=== PATIENT | male | born 1955 | race Caucasian/White ===

== ENCOUNTER 2019-07-27 13:36 | Observation (INO) ==
--- NOTE | 2019-07-27 14:17 | Diag Imaging Result Doc PS360 ---
CT HEAD W/O CONTRAST - 07/27/2019 INDICATION: weakness COMPARISON: 07/05/2019 FINDINGS: The ventricles and sulci are normal in size and contour. No intracranial mass or hemorrhage. The skull is intact. The sinuses mastoids and middle ears are clear. IMPRESSION: Negative exam. This exam was performed using automated exposure control, adjustment of mA or kV according to patient size, and/or use of iterative reconstruction technique Electronically signed by Sarthak Kim 07/27/2019 2:15 PM
[2019-07-27 14:54] LABS: BASO# 0.02 X1000 (0.0-0.2); BASO% 0.3 % (0.0-0.8); EOS# 0.11 X1000 (0.0-0.7); EOS% 1.4 % (0.0-10.0); HEMATOCRIT 46.3 % (42.0-52.0); HEMOGLOBIN 15.4 g/dL (14.0-18.0); IMM GRAN# 0.03 X1000 (0.0-0.04); IMM GRAN% 0.4 % (0.0-0.5); LYMPH# 2.14 X1000 (1.2-3.4); LYMPH% 27.8 % (20.5-51.1); MCH 31.4 PG (27-31); MCHC 33.3 g/dL (33-37); MCV 94.3 FL (81-99); MONO# 0.57 X1000 (0.11-0.59); MONO% 7.4 % (1.7-9.3); MPV 8.8 FL (7.4-10.4); NEUT# 4.84 X1000 (1.4-6.5); NEUT% 62.7 % (42.2-75.2); PLT 174 X1000 (130-400); RBC 4.91 XMIL (4.7-6.1); RDW 12.5 % (11.5-14.5); WBC 7.71 X1000 (4.8-10.8)
--- NOTE | 2019-07-27 15:06 | EKG Report ---
Test Performed on : 07/27/2019 2:48:14 PM Test Reason : weakness Blood Pressure : / mmHG Vent. Rate : 077 BPM Atrial Rate : 077 BPM P-R Int : 150 ms QRS Dur : 088 ms QT Int : 398 ms P-R-T Axes : 031 -10 037 degrees QTc Int : 450 ms Normal sinus rhythm. Normal ECG When compared with ECG of 05-JUL-2019 00:51, (Unconfirmed) Nonspecific T wave abnormality now evident in Lateral leads Unconfirmed Result
[2019-07-27 15:25] LABS: AGAP 17; ALB/GLOB RATIO 2.2; ALBUMIN 4.2 g/dL (3.5-5.0); ALKALINE PHOSPHATASE 58 U/L (32-122); BUN 11 mg/dL (8-22); CALCIUM 9.1 mg/dL (8.8-10.2); CHLORIDE 98 mmol/L (98-107); COSMO 280; CREATININE 0.8 mg/dL (0.7-1.2); ESTIMATED GFR > 60; GLUCOSE 180 mg/dL (70-104); GOT 15 U/L (10-34); GPT 11 U/L (10-44); POTASSIUM 4.5 mmol/L (3.5-5.1); SODIUM 138 mmol/L (136-145); TCO2 23 mmol/L (25-35); TOTAL BILIRUBIN 0.38 mg/dL (0.20-1.00); TOTAL PROTEIN 6.1 g/dL (6.3-8.3)
[2019-07-27 17:54] LABS: URINE SOURCE CLEAN CATCH
[2019-07-27 18:02] LABS: UR EPITHELIAL CELLS <10 /HPF (<10); URINE BACTERIA 1+ /HPF; URINE RBC <10 /HPF (<10); URINE WBC <10 /HPF (<10)
[2019-07-27 18:04] LABS: BILIRUBIN URINE NEGATIVE (NEGATIVE); BLOOD URINE NEGATIVE (NEGATIVE); COLOR YELLOW; GLUCOSE URINE >1000 mg/dL (NEGATIVE); KETONE URINE 60 mg/dL (NEGATIVE); LEUKOCYTES URINE NEGATIVE (NEGATIVE); NITRITE URINE NEGATIVE (NEGATIVE); PH URINE 5.5; PROTEIN URINE NEGATIVE (NEGATIVE); SP GRAVITY URINE 1.041; TURBIDITY URINE CLEAR (CLEAR); UROBILINOGEN URINE NORMAL (NORMAL)
--- NOTE | 2019-07-27 18:34 | PROVIDER DOCUMENTATION ---
This chart was entered by La Waterman Scribe, acting as scribe for Richard Vogt MD. HPI-Musculoskeletal Pain/Inj - GENERAL Stated Complaint: WEAKNESS Time Seen by Provider: 07/27/19 13:43 Source: patient - HX OF PRESENT ILLNESS-MUSKULOSKELTAL Nature of Presenting Problem: 64 yom presents to the ed with c/o BLE weakness and unable to ambulate since onset of weakness. pt saw his pcp and was told 2 of his medications were causing sx and was taken off one of them. pt is unsure what medications it was. pt on exam is nonotoxic in appearance on exam Quality of Pain: reports: none (just c/o weakness) Severity in ED: moderate Onset/Duration: other (2 weeks) Timing: still present, constant Modifying Factors: improves with: nothing Any recent injury?: No Locality of Occurance: Home Similar Symptoms Previously?: Yes Recently seen or treated by another doctor?: Yes (pcp) Review of Systems - Adult - REVIEW OF SYSTEMS - ADULT Constitutional: denies: chills, fever Eyes: reports: no symptoms reported Ears, Nose, Mouth & Throat: reports: no symptoms reported Cardiovascular: reports: no symptoms reported. denies: chest pain, edema, palpitations Respiratory: denies: cough, shortness of breath, wheezing Gastrointestinal: denies: diarrhea, nausea, vomiting Genitourinary: reports: no symptoms reported Musculoskeletal: reports: see HPI, muscle weakness (BLE). denies: back pain, neck pain Integumentary: reports: no symptoms reported Neurological: denies: dizziness/vertigo, headache/migraines Psychiatric: reports: no symptoms reported Endocrine: reports: no symptoms reported Hematologic/Lymphatic: reports: no symptoms reported Allergic/Immunologic: reports: no symptoms reported All Other Systems: Reviewed and Negative Past History - Adult - PAST MEDICAL HISTORY-ADULT Review of Records: reports: Old Records Reviewed, Nursing Assessment Review, Medications Reviewed, Social history reviewed & non-contributory. Major Childhood Illnesses: reports: denies history Cardiovascular: reports: hyperlipidemia Respiratory: reports: denies history Gastrointestinal: reports: GERD Genitourinary: reports: denies history Musculoskeletal: reports: arthritis, chronic pain, intervertebral disc disease Neurological: reports: denies history, dementia Psychiatric: reports: bipolar, depression, psychiatric problems Endocrine/Immune: reports: Diabetes, thyroid disorder Diabetes Type: Type 2 Other Conditions: reports: denies history, MRSA - PRIOR SURGERIES/PROCEDURES Surgical/Procedure History: reports: cholecystectomy, other (cataract removal,) - IMMUNIZATION STATUS Childhood Immunizations: See Nurse Assessment Flu Vaccine: See Nurse Assessment - FAMILY HISTORY Family History: reviewed, not pertinent - SOCIAL HISTORY Smoking: quit greater than 1 year Substance Use: denies Living Situation: family Physical Exam-Injury Related - Physical Exam-Injury Related Initial Vital Signs Reviewed: Yes General Appearance: appears well, alert, mild distress Eyes: PERRL/EOMI, pink conjunctivae Head, Ears, Nose, Mouth & Throat: moist mucous membranes, normal ENT inspection Neck: non-tender, full range of motion, supple, normal inspection Respiratory: chest non-tender, lungs clear, normal breath sounds Cardiovascular: normal peripheral pulses, regular rate, rhythm Chest/Breast: deferred Abdominal Exam: normal bowel sounds, non tender, soft, no organomegaly, no pulsatile mass Male Genitalia: deferred Rectal Exam: deferred Hemoccult Exam: deferred Lymphatic: no adenopathy Back Exam: normal inspection, no CVA tenderness, no vertebral tenderness Extremity: normal inspection, no pedal edema, no calf tenderness, normal c apillary refill, pelvis stable, other (weakness to BLE for 2 weeks. pt on exam can move BLE about 1 inch from bed without assistance. pt sts has not been able to ambulate due to weakness and has seen pcp). negative: normal gait Progress - PLAN OF CARE/RESULTS Progress/Plan/Lab Results: Vital Signs - 8 hr 07/27/19 13:45 Temperature 98.6 F Pulse Rate 88 Respiratory Rate 16 Blood Pressure 104/62 O2 Sat by Pulse Oximetry 98 Laboratory Results - last 24 hr 07/27/19 07/27/19 07/27/19 14:40 14:40 14:40 WBC 7.71 RBC 4.91 Hgb 15.4 Hct 46.3 MCV 94.3 MCH 31.4 H MCHC 33.3 RDW Std Deviation 12.5 Plt Count 174 MPV 8.8 Immature Gran % (Auto) 0.4 Neut % (Auto) 62.7 Lymph % (Auto) 27.8 [place] % (Auto) 7.4 Eos % (Auto) 1.4 Baso % (Auto) 0.3 Immature Gran # (Auto) 0.03 Neut # (Auto) 4.84 Lymph # (Auto) 2.14 [place] # (Auto) 0.57 Eos # (Auto) 0.11 Baso # (Auto) 0.02 Sodium 138 Potassium 4.5 Chloride 98 Carbon Dioxide 23 L Anion Gap 17 BUN 11 Creatinine 0.8 Estimated GFR/1.73 m2 > 60 BUN/Creatinine Ratio 14 Glucose 180 H POC Glucose Calculated Osmolality 280 Calcium 9.1 Phosphorus Magnesium Total Bilirubin 0.38 AST 15 ALT 11 Alkaline Phosphatase 58 Troponin T < 0.010 Total Protein 6.1 L Albumin 4.2 Globulin 1.9 Albumin/Globulin Ratio 2.2 Urine Source Urine Color Urine Turbidity Urine pH Ur Specific [place] Urine Protein Ur Glucose (Stick) Ur Ketones (Stick) Urine Blood Urine Nitrite Urine Bilirubin Urobilinogen Dipstick Urine Leukocytes Urine WBC (Auto) Urine RBC (Auto) U Epithel Cells (Auto) Urine Bacteria (Auto) 07/27/19 07/27/19 07/27/19 14:40 14:40 14:54 WBC RBC Hgb Hct MCV MCH MCHC RDW Std Deviation Plt Count MPV Immature Gran % (Auto) Neut % (Auto) Lymph % (Auto) [place] % (Auto) Eos % (Auto) Baso % (Auto) Immature Gran # (Auto) Neut # (Auto) Lymph # (Auto) [place] # (Auto) Eos # (Auto) Baso # (Auto) Sodium Potassium Chloride Carbon Dioxide Anion Gap BUN Creatinine Estimated GFR/1.73 m2 BUN/Creatinine Ratio Glucose POC Glucose 170 H Calculated Osmolality Calcium Phosphorus 3.3 Magnesium 1.9 Total Bilirubin AST ALT Alkaline Phosphatase Troponin T Total Protein Albumin Globulin Albumin/Globulin Ratio Urine Source Urine Color Urine Turbidity Urine pH Ur Specific [place] Urine Protein Ur Glucose (Stick) Ur Ketones (Stick) Urine Blood Urine Nitrite Urine Bilirubin Urobilinogen Dipstick Urine Leukocytes Urine WBC (Auto) Urine RBC (Auto) U Epithel Cells (Auto) Urine Bacteria (Auto) 07/27/19 17:32 WBC RBC Hgb Hct MCV MCH MCHC RDW Std Deviation Plt Count MPV Immature Gran % (Auto) Neut % (Auto) Lymph % (Auto) [place] % (Auto) Eos % (Auto) Baso % (Auto) Immature Gran # (Auto) Neut # (Auto) Lymph # (Auto) [place] # (Auto) Eos # (Auto) Baso # (Auto) Sodium Potassium Chloride Carbon Dioxide Anion Gap BUN Creatinine Estimated GFR/1.73 m2 BUN/Creatinine Ratio Glucose POC Glucose Calculated Osmolality Calcium Phosphorus Magnesium Total Bilirubin AST ALT Alkaline Phosphatase Troponin T Total Protein Albumin Globulin Albumin/Globulin Ratio Urine Source CLEAN CATCH Urine Color YELLOW Urine Turbidity CLEAR Urine pH 5.5 Ur Specific [place] 1.041 Urine Protein NEGATIVE Ur Glucose (Stick) >1000 A Ur Ketones (Stick) 60 A Urine Blood NEGATIVE Urine Nitrite NEGATIVE Urine Bilirubin NEGATIVE Urobilinogen Dipstick NORMAL Urine Leukocytes NEGATIVE Urine WBC (Auto) <10 Urine RBC (Auto) <10 U Epithel Cells (Auto) <10 Urine Bacteria (Auto) 1+ Orders Category Date Time Status Nursing- Obtain EKG ONCE Care 07/27/19 13:[address] HEAD W/O CONTRAST [CT] Stat Exams 07/27/19 13:54 Completed CBC WITH ELECTRONIC DIFF [HEME] Stat Lab 07/27/19 14:40 Completed COMPREHENSIVE METABOLIC PANEL [CHEM] Stat Lab 07/27/19 14:40 Completed MAGNESIUM [CHEM] Stat Lab 07/27/19 14:40 Completed TROPONIN T Stat Lab 07/27/19 14:40 Completed URINALYSIS W/POSS RFLX CULT [URINALYSIS] Stat Lab 07/27/19 17:32 Completed phos [PHOSPHORUS] [CHEM] Stat Lab 07/27/19 14:40 Completed EKG [EKG] Stat Ther 07/27/19 13:49 Draft Result Diagrams: 07/27/19 14:40 07/27/19 14:40 - REASSESSMENT Reassessment #1 Time Reassessed: 14:49 Status: unchanged - EKG 1 Time of EKG reading by physician:: 14:48 EKG Read and Signed by:: Richard Vogt EKG Interpretation (*Must complete 3 of following elements*): Normal Rate: 77 Rhythm: nsr [place]: normal QRS: normal MD Interval: normal ST Wave: normal - CT/MRI 1 CT Study: Head Impression: See EMR Report (CT HEAD W/O CONTRAST - 07/27/2019 INDICATION: weak ness COMPARISON: 07/05/2019 FINDINGS: The ventricles and sulci are normal in size and contour. No intracranial mass or hemorrhage. The skull is intact. The sinuses mastoids and middle ears are clear. IMPRESSION: Negative exam. This exam was performed using automated exposure control, adjustment of mA or kV according to patient size, and/or use of iterative reconstruction technique Electronically signed by Sarthak Kim 07/27/2019 2:15 PM 07/27/19 1415 Interpreting Physician: Sarthak Kim MD Dictated Date/Time: 07/27/19 1414 cc: Richard Vogt MD; Jamari Russell MD) - CONSULTS/PCP/HOSPITALIST Notification #1 *Consult/PCP/Hospitalist*: Roxanne ([employer]) for Dr Potter Time Discussed: 18:30 Consult Disposition: Will see in ED, Admit Departure - Departure Date of Disposition Decision: 07/27/19 Time of Disposition Decision: 18:29 DIAGNOSIS: Weakness, Neuropathy Disposition: ADMITTED INPATIENT 09 Certified Medical Emergency: Emergent Condition: Fair Referrals and Follow-Ups: Jamari Russell MD [Primary Care Provider] - - Critical Care Note This patient required my direct & personal management of CC.: No Attestation - Physician/ KORI Attestation Patient care was provided by Advanced Practice Provider:: No The physician spent face to face time with patient:: Yes Advanced Practice Provider documentation review:: Supervising physician onsite and consulted in the evaluation and care of this patient. The physician did have a face to face encounter with the patient. This chart was documented by the indicated scribe, (La Waterman Scribe) and accurately reflects the services I performed and decisions made by me, Richard Vogt MD, as attested by the provider's signature.
--- NOTE | 2019-07-27 22:01 | HISTORY AND PHYSICAL ---
PRIMARY CARE PHYSICIAN: Dr. Russell. CHIEF COMPLAINT: Lower extremity weakness. HISTORY OF PRESENTING ILLNESS: A 64-year-old male with a history of diabetic neuropathy, bipolar disorder, hypothyroidism who presented to the emergency department with 3 weeks history of progressive lower extremity weakness. The patient states that his thighs was getting weak and somewhat hurting and he was having difficulty ambulating. He states that over the course of the past several days it was worsening such that he could not tolerate it and subsequently had come to the emergency department. In the ED, he was evaluated. The patient was having difficulty ambulating and due to his presenting symptoms, it was thought that we will place him for observation for further evaluation and management. At the time of my examination, patient denied any headache, fever, chills, nausea, vomiting, diarrhea, hemoptysis, melena, weight changes, but complained of lower extremity weakness and thigh pain. PAST MEDICAL HISTORY: Includes diabetic neuropathy, bipolar disorder, detached left retina, hypothyroidism. PAST SURGICAL HISTORY: Tonsillectomy, sinus surgery, skin cyst removal, cataract surgery bilaterally, left eye surgery. ALLERGIES: Iodine, seafood and shellfish. CURRENT MEDICATIONS: He does not recall and the nursing staff will reconcile. SOCIAL HISTORY: He is a former smoker. No history of alcohol or illicit drug use. FAMILY HISTORY: No history of coronary disease. REVIEW OF SYSTEMS: Fourteen point review of system is as HPI. Other systems negative. PHYSICAL EXAMINATION: GENERAL: Cooperative, friendly male who is resting more comfortably now. VITAL SIGNS: Temperature 98.6 degrees, pulse 88, respirations 16, blood pressure 104/62. HEENT: Atraumatic, normocephalic. Extraocular movements intact. PERRLA. NECK: Supple. CHEST: Clear to auscultation. CARDIOVASCULAR: Regular rate and rhythm. ABDOMEN: Soft. Positive bowel sounds. EXTREMITIES: +1 edema. NEUROLOGIC: He is awake, alert, oriented x3. Speech is intact. Strength 5/5 in all extremities. There is tenderness in his thigh region. : No bladder distention. SKIN: Warm. LABORATORIES AND STUDIES: WBC 7.71, hemoglobin 15.4, hematocrit 46.3, platelets 174,000. Sodium 138, potassium 4.5, chloride 98, CO2 is 23, BUN is 11, creatinine 0.8, glucose is 180. ASSESSMENT: This is a 64-year-old male with a history of diabetic neuropathy, bipolar disorder and hypothyroidism, who presented to emergency department with 3 weeks history of progressive lower extremity weakness. He was evaluated in the emergency department and due to his presenting symptoms, we will place him for observation for further evaluation management. 1. Bilateral lower extremity weakness. 2. Diabetic neuropathy. 3. Bipolar disorder. 4. Hypothyroidism. PLAN: 1. We will admit patient to medical floor with telemetry. 2. We will consult Physical Therapy. 3. We will check B12 levels and also an FABIANO. 4. If his symptoms do not improve, we will consider neurology consult. 5. Restart his home medications. 6. We will also check a thyroid profile. 7. Put patient on deep vein thrombosis prophylaxis with sequential compression devices. 8. We will continue to follow and reassess. Make further recommendation based on patient's clinical course. cc: Edwardo Potter MD
[2019-07-27] MEDS ORDERED: ZOFRAN IV PRN (23:08)
[2019-07-28] MEDS: ZANTAC PO SCH ×2 (00:02→22:16)
[2019-07-28] MEDS: NS 1,000 ML IV SCH ×3 (00:02→19:31)
[2019-07-28] MEDS: COGENTIN PO SCH ×3 (00:02→22:21)
[2019-07-28] MEDS: MYSOLINE PO SCH ×2 (00:02→22:16)
[2019-07-28] MEDS: DEPAKOTE ER PO SCH ×3 (00:02→22:16)
[2019-07-28] MEDS: NEURONTIN PO SCH ×3 (00:02→22:15)
[2019-07-28] MEDS: SYNTHROID PO SCH (06:02)
[2019-07-28 07:51] LABS: BASO# 0.02 X1000 (0.0-0.2); BASO% 0.3 % (0.0-0.8); EOS# 0.18 X1000 (0.0-0.7); EOS% 2.4 % (0.0-10.0); HEMATOCRIT 44.7 % (42.0-52.0); IMM GRAN# 0.03 X1000 (0.0-0.04); IMM GRAN% 0.4 % (0.0-0.5); LYMPH# 2.63 X1000 (1.2-3.4); LYMPH% 34.8 % (20.5-51.1); MCH 32.3 PG (27-31); MCHC 33.6 g/dL (33-37); MCV 96.1 FL (81-99); MONO# 1.05 X1000 (0.11-0.59); MONO% 13.9 % (1.7-9.3); MPV 8.9 FL (7.4-10.4); NEUT# 3.64 X1000 (1.4-6.5); NEUT% 48.2 % (42.2-75.2); PLT 181 X1000 (130-400); RBC 4.65 XMIL (4.7-6.1); RDW 12.7 % (11.5-14.5); WBC 7.55 X1000 (4.8-10.8)
[2019-07-28] MEDS: CYMBALTA PO SCH (10:22)
[2019-07-28] MEDS: FOLIC ACID PO SCH (10:22)
[2019-07-28] MEDS: ASPIRIN PO SCH (10:23)
[2019-07-28] MEDS: LIPITOR PO SCH (10:23)
--- NOTE | 2019-07-28 21:17 | PROGRESS NOTE ---
DATE: 07/28/2019 SUBJECTIVE: The patient feels a little stronger today, still do not really have a clear diagnosis though. OBJECTIVE: Blood pressure 110/63, heart rate 68, respiratory rate of 16, temperature 98 degrees.Cardiovascular: Regular rate and rhythm. Pulmonary: Bilateral breath sounds, clear to auscultation. GI: Soft, nontender, nondistended. Bowel sounds are positive. LABORATORY DATA: White count 7, hemoglobin and hematocrit 15 and 44, platelets 181,000. B12 and folate levels were normal. UA was normal. He denies any pain, but he does have neuropathy and paresthesias, but that is chronic. 1. Lower extremity weakness, really kind unclear source. He is a psychiatric patient and it looks like he is on multiple medications, and was recently hospitalized inpatient psychiatry for that. He is on Depakote, Neurontin, Cogentin was the most recent addition. That is it, unless he is on other medications that are unaccounted for. Jardiance. He is supposed to be on glargine, Tradjenta, prazosin, Cymbalta 20 which he is not on any atypical antipsychotics. I do not know if the Cogentin is the most recent addition, but it is not clear that would cause weakness per se. We will check TSH, CPK levels. He is ambulating better than he was previously, so I think there is some improvement. We are waiting for PT evaluation, to see if he may need a walker and he may need home PT or outpatient PT. 2. Bipolar disorder appears to be under control. We will continue to follow closely from that standpoint as well. We will check inflammatory markers. 3. Diabetes. His blood sugars have been pretty stable, but I think we should probably resume his medications. Right now he is not even on any sliding scale. He is usually on a fairly decent dose of Lantus. We will check an A1c too. cc: Godwin Saenz MD [facility]
[2019-07-28] MEDS: HUMULIN R SUBQ SCH (22:21)
[2019-07-29] MEDS: SYNTHROID PO SCH (06:05)
[2019-07-29] MEDS: HUMULIN R SUBQ SCH ×3 (06:40→17:27)
[2019-07-29 07:19] LABS: BASO# 0.01 X1000 (0.0-0.2); BASO% 0.2 % (0.0-0.8); EOS# 0.16 X1000 (0.0-0.7); EOS% 2.5 % (0.0-10.0); HEMATOCRIT 44.4 % (42.0-52.0); HEMOGLOBIN 14.8 g/dL (14.0-18.0); IMM GRAN# 0.04 X1000 (0.0-0.04); IMM GRAN% 0.6 % (0.0-0.5); LYMPH# 2.73 X1000 (1.2-3.4); LYMPH% 42.9 % (20.5-51.1); MCH 31.7 PG (27-31); MCHC 33.3 g/dL (33-37); MCV 95.1 FL (81-99); MONO# 0.81 X1000 (0.11-0.59); MONO% 12.7 % (1.7-9.3); MPV 8.5 FL (7.4-10.4); NEUT# 2.61 X1000 (1.4-6.5); NEUT% 41.1 % (42.2-75.2); PLT 182 X1000 (130-400); RBC 4.67 XMIL (4.7-6.1); RDW 12.4 % (11.5-14.5); WBC 6.36 X1000 (4.8-10.8)
[2019-07-29 07:57] LABS: AGAP 11; BUN 8 mg/dL (8-22); CALCIUM 8.1 mg/dL (8.8-10.2); CHLORIDE 103 mmol/L (98-107); CK TOTAL 37 U/L (24-204); COSMO 280; CREATININE 0.6 mg/dL (0.7-1.2); ESTIMATED GFR > 60; GLUCOSE 147 mg/dL (70-104); POTASSIUM 3.8 mmol/L (3.5-5.1); SODIUM 140 mmol/L (136-145); TCO2 26 mmol/L (25-35)
[2019-07-29 08:02] LABS: HEMOGLOBIN A1C 9.4 % (4.8-6.0)
[2019-07-29 08:32] LABS: SED RATE 0 mm/hr (0-15)
[2019-07-29] MEDS: ASPIRIN PO SCH (09:38)
[2019-07-29] MEDS: CYMBALTA PO SCH (09:39)
[2019-07-29] MEDS: DEPAKOTE ER PO SCH (09:39)
[2019-07-29] MEDS: COGENTIN PO SCH (09:39)
[2019-07-29] MEDS: LIPITOR PO SCH (09:40)
[2019-07-29] MEDS: FOLIC ACID PO SCH (09:40)
[2019-07-29] MEDS: NEURONTIN PO SCH (09:40)
[2019-07-29 11:07] VITALS: BP 117/71
== END 2019-07-29 18:48 | disposition home health service (06) ==
LOC: SUPCPDRO → ED 13:36 → 4N 13:36 → SUATTDRO 13:37
PROVIDERS: ATTEND Internal Medicine

== ENCOUNTER 2019-11-11 18:34 | Inpatient (IN) ==
[2019-11-11 19:45] LABS: BASO# 0.03 X1000 (0.0-0.2); BASO% 0.4 % (0.0-0.8); EOS# 0.04 X1000 (0.0-0.7); EOS% 0.5 % (0.0-10.0); HEMATOCRIT 41.6 % (42.0-52.0); HEMOGLOBIN 14.1 g/dL (14.0-18.0); LYMPH# 0.53 X1000 (1.2-3.4); LYMPH% 6.4 % (20.5-51.1); MCH 31.5 PG (27-31); MCHC 33.9 g/dL (33-37); MCV 92.9 FL (81-99); MONO# 1.44 X1000 (0.11-0.59); MONO% 17.5 % (1.7-9.3); MPV 9.3 FL (7.4-10.4); NEUT# 6.19 X1000 (1.4-6.5); NEUT% 75.2 % (42.2-75.2); PLT 190 X1000 (130-400); RBC 4.48 XMIL (4.7-6.1); RDW 12.9 % (11.5-14.5); WBC 8.23 X1000 (4.8-10.8)
[2019-11-11 19:54] LABS: INR 1.01; PROTIME 13.4 Seconds (11.0-16.0)
[2019-11-11 19:55] LABS: PTT 30.7 Seconds (22.3-41.8)
[2019-11-11 20:02] LABS: AGAP 19; ALB/GLOB RATIO 1.6; ALBUMIN 3.6 g/dL (3.5-5.0); ALKALINE PHOSPHATASE 57 U/L (32-122); BUN 11 mg/dL (8-22); CALCIUM 8.6 mg/dL (8.8-10.2); CHLORIDE 95 mmol/L (98-107); COSMO 282; CREATININE 0.7 mg/dL (0.7-1.2); ESTIMATED GFR > 60; GLUCOSE 289 mg/dL (70-104); GOT 15 U/L (10-34); GPT 10 U/L (10-44); POTASSIUM 4.3 mmol/L (3.5-5.1); SODIUM 136 mmol/L (136-145); TCO2 22 mmol/L (25-35); TOTAL BILIRUBIN 0.35 mg/dL (0.20-1.00); TOTAL PROTEIN 5.9 g/dL (6.3-8.3)
--- NOTE | 2019-11-11 20:47 | Diag Imaging Result Doc PS360 ---
EXAM: CT HEAD/C-SPINE W/O CONTRAST 11/11/2019 HISTORY: fall, AMS TECHNIQUE: This exam was performed using automated exposure control, adjustment of mA or kV according to patient size, and/or use of iterative reconstruction technique. COMMENT: There is no evidence of mass effect, bleed, or abnormal extra-axial fluid collection. There has been no significant change in the appearance of the brain since the previous study of 07/17/2019. The calvarium is intact. The visualized paranasal sinuses are clear. Cervical spine: There are degenerative disc changes with anterior ankylosis at C4-5 level and possibly at C 5/6. There is no evidence of acute fracture or subluxation and the facets are aligned bilaterally. Compared to the previous examination of 06/20/2019 the appearance of the cervical spine has not changed significantly. IMPRESSION: No evidence of acute intracranial disease. Degenerative changes in the cervical spine stable since 06/20/2019. Electronically signed by Darwin Mckeon 11/11/2019 8:44 PM
--- NOTE | 2019-11-11 21:02 | Diag Imaging Result Doc PS360 ---
EXAM: XRAY HIP W/PELVIS BILAT 3-4VWS 11/11/2019 HISTORY: repeated fall, pain right hip TECHNIQUE: AP pelvis and bilateral hips five views COMMENT: The hip joint spaces are well-maintained. There is patchy sclerosis in both femora. There is no evidence of acute fracture or dislocation. Compared to 10/10/2018 the left hip has not changed significantly. IMPRESSION: No evidence of acute bony disease. Electronically signed by Darwin Mckeon 11/11/2019 9:00 PM
--- NOTE | 2019-11-11 21:05 | Diag Imaging Result Doc PS360 ---
EXAM: CHEST-PORTABLE 11/11/2019 HISTORY: stroke like symptoms TECHNIQUE: AP semiupright chest at 2039 COMMENT: The inspiration is less optimal than on 07/05/2019, otherwise are has been no significant change considering differences in projection. IMPRESSION: No acute disease. Electronically signed by Darwin Mckeon 11/11/2019 9:02 PM
--- NOTE | 2019-11-11 21:07 | Diag Imaging Result Doc PS360 ---
EXAM: COCCYX/SACRUM 11/11/2019 HISTORY: low back pain TECHNIQUE: Coccyx and sacrum three views COMMENT: There is no evidence of fracture dislocation or other acute bony abnormality. The coccyx is displaced posteriorly but was also at the time of the previous CT of 09/14/2017. IMPRESSION: No acute bony abnormality. Electronically signed by Darwin Mckeon 11/11/2019 9:05 PM
--- NOTE | 2019-11-11 21:08 | Diag Imaging Result Doc PS360 ---
EXAM: LUMBAR SPINE 2-VIEWS 11/11/2019 HISTORY: low back pain TECHNIQUE: Lumbosacral spine AP and lateral two views COMMENT: There is disc space narrowing and osteophyte formation anteriorly at L5-S1. There is minimal anterolisthesis of L4 on L5 which is apparently due to facet arthropathy. No evidence of acute fracture or subluxation is present. The pedicles are intact. IMPRESSION: Degenerative disc and facet disease. Electronically signed by Darwin Mckeon 11/11/2019 9:06 PM
[2019-11-11 21:21] LABS: URINE SOURCE CLEAN CATCH
[2019-11-11 21:25] LABS: BILIRUBIN URINE NEGATIVE (NEGATIVE); BLOOD URINE NEGATIVE (NEGATIVE); COLOR YELLOW; GLUCOSE URINE >1000 mg/dL (NEGATIVE); KETONE URINE 60 mg/dL (NEGATIVE); LEUKOCYTES URINE TRACE (NEGATIVE); NITRITE URINE NEGATIVE (NEGATIVE); PH URINE 6.5; PROTEIN URINE 30 mg/dL (NEGATIVE); SP GRAVITY URINE 1.029; TURBIDITY URINE HAZY (CLEAR); UROBILINOGEN URINE NORMAL (NORMAL)
[2019-11-11 21:29] LABS: UR EPITHELIAL CELLS <10 /HPF (<10); URINE BACTERIA 4+ /HPF; URINE RBC <10 /HPF (<10)
[2019-11-11] MEDS ORDERED: NS 1,000 ML IV ONE (21:30)
[2019-11-11 22:04] LABS: ALLEN TEST YES; BE 2.8 mmoll (-3.0-3.0); BLOOD TYPE ARTERIAL; HCO3-(ACT) 27.1 mmoll (20.0-26.0); METHB 0.9 % (0.0-1.5); O2(CT) 17.8 mL/dL (15.0-23.0); PCO2(98.6) 40 mmHg (35-45); PO2(98.6) 75 mmHg (60-100); SAMPLE BLOOD; SAO2 97.5 % (95.0-100.0); THB 13.3 g/dL (11.5-17.4); pH(98.6) 7.44 (7.35-7.45)
[2019-11-11 22:05] LABS: UR AMPHETAMINES QUAL NONE DETECTED (NONE DETECT); UR BARBITUATES QUAL PRESUMPTIVE POSITIVE (NONE DETECT); UR BENZODIAZEPIN QUAL NONE DETECTED (NONE DETECT); UR CANNABINOIDS QUAL NONE DETECTED (NONE DETECT); UR COCAINE QUAL NONE DETECTED (NONE DETECT); UR METHADONE QUAL NONE DETECTED (NONE DETECT); UR OPIATES QUAL NONE DETECTED (NONE DETECT); UR OXYCODONE QUAL NONE DETECTED (NONE DETECT); UR PCP QUAL NONE DETECTED (NONE DETECT)
[2019-11-11 22:05] LABS: MODALITY CANNULA
--- NOTE | 2019-11-11 22:08 | EKG Report ---
Test Performed on : 11/11/2019 7:46:39 PM Test Reason : Stroke like symptoms Blood Pressure : / mmHG Vent. Rate : 100 BPM Atrial Rate : 100 BPM P-R Int : 112 ms QRS Dur : 078 ms QT Int : 334 ms P-R-T Axes : 018 012 092 degrees QTc Int : 430 ms Sinus rhythm. with premature atrial complexes. with aberrant conduction. T wave abnormality, consider lateral ischemia Abnormal ECG When compared with ECG of 27-JUL-2019 14:48, aberrant conduction. is now present Inverted T waves have replaced nonspecific T wave abnormality in Lateral leads Unconfirmed Result
--- NOTE | 2019-11-11 23:17 | PROVIDER DOCUMENTATION ---
This chart was entered by Sunshine Carter Scribe, acting as scribe for Pb Bain MD. HPI-Neurological Disorder - General Chief Complaint: Altered Mental Status Stated Complaint: weakness Time Seen by Provider: 11/11/19 19:10 Source: patient Allergies/Adverse Reactions: Patient Allergies Allergy/AdvReac Type Severity Reaction Status Date / Time latex Allergy RASH Verified 11/12/19 00:14 shellfish derived Allergy HIVES Verified 11/12/19 00:14 iodine AdvReac Intermediate HIVES Verified 11/12/19 00:14 Home Medications: Home Medication List Medication Instructions Recorded Confirmed Last Taken Type ATORVAstatin [Lipitor] 10 mg PO HS 11/15/12 11/12/19 11/10/19 21:00 History Metformin [Glucophage] 1,000 mg PO BID #0 tablet 11/29/12 11/12/19 11/11/19 10:00 Rx Insulin Glargine [Lantus] 30 unit SUBQ BID 06/03/15 11/12/19 11/11/19 10:00 History Linagliptin [Tradjenta] 5 mg PO DAILY 06/03/15 11/12/19 11/11/19 10:00 History Divalproex E.r. [Depakote ER] 1,500 mg PO BID 06/06/18 11/12/19 11/11/19 10:00 History Levothyroxine Sodium 125 mcg PO DAILY 06/06/18 11/12/19 11/11/19 10:00 History Insulin Lispro [Humalog] 12 unit SQ BID 04/08/19 11/12/19 11/11/19 10:00 History Prazosin [Minipress] 1 cap PO HS PRN PRN 04/08/19 11/12/19 11/10/19 21:00 History Primidone [Mysoline] 50 mg PO QHS 04/08/19 11/12/19 11/10/19 21:00 History Aspirin 81 mg PO DAILY 07/04/19 11/12/19 11/11/19 10:00 History Melatonin 10 mg PO QHS 07/04/19 11/12/19 11/10/19 21:00 History Gabapentin [Neurontin] 300 mg PO DAILY 07/05/19 11/12/19 11/11/19 10:00 History Multivit with Calcium,Iron,Min 1 ea PO HS 07/05/19 11/12/19 11/10/19 21:00 History [Essential Daily] Benztropine [Cogentin] 1 mg PO BID tab 07/09/19 11/12/19 11/11/19 10:00 Rx Dicyclomine [Bentyl] 10 mg PO AC + HS cap 07/09/19 11/12/19 11/11/19 10:00 Rx Duloxetine [Cymbalta] 20 mg PO DAILY cap 07/09/19 11/12/19 11/11/19 10:00 Rx Famotidine [Pepcid] 20 mg PO HS 11/12/19 11/12/19 11/11/19 10:00 History Gabapentin 800 mg PO BID 11/12/19 11/12/19 11/10/19 21:00 History - History of Present Illness-Neuro Nature of Presenting Problem: Pt is a 64 yom who presents to the ED via EMS with . Pt states that the pt fell 6 times today. Pt also state that the pt became altered after 6th fall. Pt states that she called EMS and the pt responded incorrectly to questions such as the Date/Year. Pt reports low back pain with increased weakness in bilateral lower extremities and states that pt hit his head during one of the falls. Pt reports lower back pain but denies any other complaints. . He had been admitted here in the past for low back pain. Had incomplete home PT visits Severity: reports: mild Onset/Duration: reports: just prior to arrival Timing: reports: still present Context: reports: head injury, other (altered mental status.) Character of Altered Mental Status: reports: disoriented (Pt is unsure of date and year but is aware of his name and the current president.) Any recent trauma/injury?: reports: to head Character of Deficits: reports: new weakness, altered sensation, decreased ability to walk New weakness or altered sensation location:: reports: none Cognitive Baseline: alert but confused Gait Baseline: uses a walker Associated Symptoms: reports: decreased ability to walk or stand, neck/back pain (lower back pain), trouble walking, vomiting, weakness (in bilateral lower extremities) Similar Symptoms Previously?: Yes Recently seen or treated by another doctor?: No Review of Systems - Adult - REVIEW OF SYSTEMS - ADULT ROS:: ROS per family (due to pt altered mental status) Constitutional: reports: see HPI Eyes: reports: no symptoms reported Ears, Nose, Mouth & Throat: reports: no symptoms reported Cardiovascular: reports: no symptoms reported Respiratory: reports: no symptoms reported Gastrointestinal: reports: no symptoms reported Genitourinary: reports: no symptoms reported Musculoskeletal: reports: see HPI, back pain (lower back pain), muscle weakness (bilateral lower extremities) Integumentary: reports: no symptoms reported Neurological: reports: see HPI, loss of balance Psychiatric: reports: no symptoms reported Endocrine: reports: no symptoms reported Hematologic/Lymphatic: reports: no symptoms reported Allergic/Immunologic: reports: no symptoms reported All Other Systems: Reviewed and Negative Past History - Adult - PAST MEDICAL HISTORY-ADULT Review of Records: reports: Old Records Reviewed, Nursing Assessment Review, Medications Reviewed, Social history reviewed & non-contributory. Major Childhood Illnesses: reports: denies history Cardiovascular: reports: hyperlipidemia Respiratory: reports: denies history Gastrointestinal: reports: denies history Obstetrical/Gynecological: reports: denies history Genitourinary: reports: denies history Musculoskeletal: reports: arthritis, intervertebral disc disease Neurological: reports: denies history, dementia Psychiatric: reports: bipolar, depression, psychiatric problems Endocrine/Immune: reports: Diabetes Diabetes Type: Type 2 Other Conditions: reports: denies history, MRSA - PRIOR SURGERIES/PROCEDURES Surgical/Procedure History: reports: cholecystectomy, other (cataract removal,) - IMMUNIZATION STATUS Childhood Immunizations: See Nurse Assessment Flu Vaccine: See Nurse Assessment - FAMILY HISTORY Family History: reviewed, not pertinent - SOCIAL HISTORY Smoking: non-smoker Substance Use: denies Living Situation: family Physical Exam- Neurological - Physical Exam-Neuro Initial Vital Signs Reviewed: No General Appearance: lethargic (slightly) Eye Exam: bilateral eye: normal inspection HENMT: other (dry tongue). negative: moist mucous membranes (dry) Head Injury: no evidence of injury Neck: non-tender, full range of motion, supple, normal inspection Respiratory: chest non-tender, lungs clear, normal breath sounds, no pleuratic chest pain, no respiratory distress, no accessory muscle use. negative: crackles, wheezing Cardiovascular: normal peripheral pulses, regular rate, rhythm, no edema, no gallop, no JVD, no murmur. negative: bradycardia, tachycardia Abdominal Exam: normal bowel sounds, non tender, soft Extremity: normal range of motion, non-tender, normal inspection, tenderness (bilateral lower back, R hip). 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 Does not remember some immediate past presents) Integumentary: normal color, normal turgor, warm/dry Psych/Mental Status: normal thought content (Pt is unware of the date/year.) - Glascow Coma Scale Best Eye Response: (4) open spontaneously Best Verbal Response: (5) oriented Best Motor Response: (6) obeys commands Total Glascow Score: 14 Progress - PLAN OF CARE/RESULTS Progress/Plan/Lab Results: Orders Category Date Time Status Admit - [facility] Routine AdmDCTranf 11/12/19 01:54 Active Activity - Up with Assistance ORDERED Care 11/12/19 01:54 Active Apply Mechanical Device [QM] ORDERED Care 11/12/19 01:54 Active Aspiration Precautions DIRECTED Care 11/12/19 01:54 Active Cardiac Monitoring DIRECTED Care 11/11/19 19:23 Completed Elevate Head of Bed DIRECTED Care 11/12/19 01:54 Active FALL Precautions NOW Care 11/12/19 01:54 Active FSBS/Accucheck Result AC + HS Care 11/12/19 00:54 Completed FSBS/Accucheck Result AC + HS Care 11/12/19 05:00 Active FSBS/Accucheck Result NOW Care 11/12/19 00:54 Completed Finger Stick Blood Sugar (ED) DIRECTED Care 11/11/19 19:23 Completed Intake and Output-Strict ORDERED Care 11/12/19 01:54 Active Neurological Check Q4H Care 11/12/19 01:54 Active Nursing- Assist w/ IS as order [id number] Care 11/12/19 01:54 Active Resuscitation Status Routine Care 11/12/19 00:55 Ordered Saline Loc NOW Care 11/11/19 19:23 Completed Vital Signs Order Q 4-HR ASSESS Care 11/12/19 01:54 Active Z-Document. for Tele Applied ORDERED Care 11/12/19 01:54 Active Diabetic Diet Diet 11/12/19 01:00 Active CHEST-PORTABLE [RAD] Stat Exams 11/11/19 19:23 Completed COCCYX/SACRUM [RAD] Stat Exams 11/11/19 19:[address] HEAD/C-SPINE W/O CONTRAST [CT] Stat Exams 11/11/19 19:[address] LUMBAR SPINE W/O CONTRAST [CT] Stat Exams 11/12/19 01:[address] THORACIC SPINE W/O CONTRAST [CT] Stat Exams 11/12/19 01:21 Completed LUMBAR SPINE 2-VIEWS [RAD] Stat Exams 11/11/19 19:28 Completed XRAY HIP W/PELVIS BILAT 3-4VWS [RAD] Stat Exams 11/11/19 19:28 Completed A1C HGB W EST AVG GLUCOSE [CHEM] Stat Lab 11/12/19 00:54 Completed ABG [RESP] Routine Lab 11/11/19 21:30 Completed ALCOHOL BLOOD Stat Lab 11/11/19 19:20 Completed BASIC METABOLIC PANEL [CHEM] Routine Lab 11/12/19 05:59 Completed CBC WITH DIFF [HEME] Routine Lab 11/12/19 05:59 Completed CBC WITH ELECTRONIC DIFF [HEME] Stat Lab 11/11/19 19:20 Completed CK PROFILE [SP CHEM] Stat Lab 11/12/19 00:51 Completed COMPREHENSIVE METABOLIC PANEL [CHEM] Stat Lab 11/11/19 19:20 Completed FREE T4 Routine Lab 11/12/19 06:00 Completed MAGNESIUM [CHEM] Routine Lab 11/12/19 05:59 Completed MAGNESIUM [CHEM] Stat Lab 11/11/19 19:20 Completed PROTIME WITH INR [COAG] Stat Lab 11/11/19 19:20 Completed PTT [COAG] Stat Lab 11/11/19 19:20 Completed TROPONIN T HIGH SENSITIVITY Stat Lab 11/11/19 19:20 Completed TSH Routine Lab 11/13/19 06:50 Completed URINALYSIS W/POSS RFLX CULT [URINALYSIS] Stat Lab 11/11/19 21:15 Completed URINE CULTURE [RM] Routine Lab 11/11/19 21:15 Results URINE DRUG SCREEN Stat Lab 11/11/19 21:15 Completed URINE MANUAL MICROSCOPIC [URINALYSIS] Stat Lab 11/11/19 21:15 Completed 0.9% Sodium Chloride Inj [Ns] 1,000 ml Med 11/12/19 01:00 Discontinued IV 100 mls/hr 0.9% Sodium Chloride Inj [Ns] 1,000 ml Med 11/11/19 21:30 Discontinued IV 999 mls/hr ATORVAstatin [Lipitor] Med 11/12/19 09:00 Active 10 mg PO DAILY Acetaminophen [Tylenol] Med 11/12/19 00:52 Active 650 mg PO Q6H PRN PRN Aspirin Med 11/12/19 09:00 Active 81 mg PO DAILY CefTRIAXONE [Rocephin] 1 gm Med 11/12/19 00:45 Active 0.9% Sodium Chloride Inj [Ns] 50 ml IV Q24H Famotidine [Pepcid] Med 11/12/19 00:54 Discontinued 20 mg IV NOW ONE Insulin Human Regular [Humulin R] Med 11/12/19 07:00 Active See Protocol SUBQ 0700,1100,1600,2100 Insulin Human Regular [Humulin R] Med 11/12/19 02:55 Discontinued See Protocol SUBQ ONCE ONE Levothyroxine [Synthroid] Med 11/12/19 09:00 Active 125 microgm PO DAILY Magnesium Sulfate 2 gm/S.w.i. Med 11/12/19 02:49 Discontinued 2 gm in 50 ml IV NOW Multivit,Fe,Ca,FA & Min [Thera M Plus] Med 11/12/19 09:00 Active 1 each PO DAILY Ondansetron [Zofran] Med 11/12/19 00:52 Active 4 mg IV Q6H PRN PRN Sodium Chloride 0.9% Med 11/12/19 00:54 Discontinued 5 - 10 ml INJ NOW ONE Incentive Spirometer Routine Oth 11/12/19 01:54 Completed Oxygen Device Routine Oth 11/12/19 01:54 Completed Telemetry [OM.EQ] Routine Oth 11/12/19 01:54 Active EKG [EKG] Stat Ther 11/11/19 19:23 Draft EKG [EKG] Stat Ther 11/12/19 06:00 Draft PT [Physical Therapy Eval/Treatment] [OM.PT] Routine Ther 11/12/19 00:30 Active Transfer/Admit Order [TRANSFER] Routine Transfer 11/11/19 23:47 Completed Pt reports that pt has a hx of altered mental status and states that pt was hospitalized in Jul for similar symptoms. Result Diagrams: 11/12/19 05:59 11/12/19 05:59 - REASSESSMENT Reassessment #1 Status: other (Reports no acute sxs at this time. Discussed unramakable CT, imaging studies beside degenerative changes. Discussed admission for AMS and that medications on med list could be causable factor of his symptoms.) - EKG 1 Time of EKG reading by physician:: 19:50 EKG Read and Signed by:: Pb Bain EKG Interpretation (*Must complete 3 of following elements*): Abnormal Rate: 100 Rhythm: Sinus rhythm with premature atrial complexes with aberrant conduction [place]: normal QRS: normal ND Interval: normal ST Wave: normal Prior EKG Comparison: no prior EKG - XRAY 1 XRAY Study: Lumbar Spine ( EXAM: LUMBAR SPINE 2-VIEWS 11/11/2019 HISTORY: low back pain TECHNIQUE: Lumbosacral spine AP and lateral two views COMMENT: There is disc space narrowing and osteophyte formation anteriorly at L5-S1. There is minimal anterolisthesis of L4 on L5 which is apparently due to facet arthropathy. No evidence of acute fracture or subluxation is present. The pedicles are intact. IMPRESSION: Degenerative disc and facet disease. Electronically signed by Darwin Mckeon 11/11/2019 9:06 PM) 2 XRAY Study: C-Spine (Degenerative changes), Chest (normal), Pelvis, Hip (normal pelvis and hip xray) - CONSULTS/PCP/HOSPITALIST Notification #1 *Consult/PCP/Hospitalist*: Dr. Alcantar Time Discussed: 23:16 Consult Disposition: Admit (accepts admission for AMS) Departure - Departure Date of Disposition Decision: 11/11/19 Time of Disposition Decision: 23:09 DIAGNOSIS: Falls frequently AMS (altered mental status) Qualifiers: Altered mental status type: unspecified Qualified Code(s): R41.82 - Altered mental status, unspecified Low back pain Qualifiers: Chronicity: unspecified Back pain laterality: unspecified Sciatica presence: unspecified whether sciatica present Qualified Code(s): M54.5 - Low back pain Disposition: ADMITTED INPATIENT 09 Certified Medical Emergency: Emergent Condition: Stable - Critical Care Note This patient required my direct & personal management of CC.: No Attestation - Physician/ KORI Attestation Patient care was provided by Advanced Practice Provider:: No The physician spent face to face time with patient:: Yes Advanced Practice Provider documentation review:: Supervising physician onsite and consulted in the evaluation and care of this patient. The physician did have a face to face encounter with the patient. This chart was documented by the indicated scribe, (Sunshine Carter Scribe) and accurately reflects the services I performed and decisions made by me, Pb Bain MD, as attested by the provider's signature.
[2019-11-12] MEDS ORDERED: ZOFRAN IV PRN (00:52)
[2019-11-12] MEDS ORDERED: SODIUM CHLORIDE 0.9% INJ ONE (00:54)
[2019-11-12] MEDS ORDERED: PEPCID IV ONE (00:54)
[2019-11-12] MEDS: ROCEPHIN 1 GM in NS 50 ML IV SCH (01:07)
[2019-11-12] MEDS: NS 1,000 ML IV SCH ×2 (01:12→15:00)
[2019-11-12 01:49] LABS: HEMOGLOBIN A1C 9.3 % (4.8-6.0)
[2019-11-12] MEDS ORDERED: MAGNESIUM SULFATE 2 GM/S.W.I. 2 GM/50 ML IVPB IV ONE (02:49)
[2019-11-12] MEDS ORDERED: HUMULIN R SUBQ ONE (02:55)
--- NOTE | 2019-11-12 05:35 | Diag Imaging Result Doc PS360 ---
EXAM : CT THORACIC SPINE W/O CONTRAST HISTORY: [place]. Lower extremity weakness,falls TECHNIQUE: CT thoracic spine without contrast COMPARISON: None. Plain films are recommended prior to thoracic spine CT. FINDINGS: Mild scoliosis with mild degenerative bone spurring. No subluxation. No fracture. The bones are mildly dense. No pleural effusions. No pneumothoraces. IMPRESSION: 1.No acute bony injury 2.A preliminary report was given at 2:31 AM This exam was performed using automated exposure control, adjustment of mA or kV according to patient size, and/or use of iterative reconstruction technique. Electronically signed by Benigno Trujillo 11/12/2019 5:33 AM
[2019-11-12] MEDS: HUMULIN R SUBQ SCH ×4 (06:43→20:55)
[2019-11-12 06:50] LABS: BASO# 0.01 X1000 (0.0-0.2); BASO% 0.2 % (0.0-0.8); EOS# 0.01 X1000 (0.0-0.7); EOS% 0.2 % (0.0-10.0); HEMATOCRIT 37.1 % (42.0-52.0); HEMOGLOBIN 12.5 g/dL (14.0-18.0); IMM GRAN# 0.05 X1000 (0.0-0.04); IMM GRAN% 0.8 % (0.0-0.5); LYMPH# 0.79 X1000 (1.2-3.4); LYMPH% 12.7 % (20.5-51.1); MCH 31.3 PG (27-31); MCHC 33.7 g/dL (33-37); MCV 92.8 FL (81-99); MONO# 1.33 X1000 (0.11-0.59); MONO% 21.5 % (1.7-9.3); MPV 9.2 FL (7.4-10.4); NEUT# 4.01 X1000 (1.4-6.5); NEUT% 64.6 % (42.2-75.2); PLT 195 X1000 (130-400); RDW 12.6 % (11.5-14.5)
[2019-11-12 07:15] LABS: AGAP 13; BUN 10 mg/dL (8-22); CALCIUM 8.3 mg/dL (8.8-10.2); CHLORIDE 98 mmol/L (98-107); COSMO 283; CREATININE 0.6 mg/dL (0.7-1.2); ESTIMATED GFR > 60; GLUCOSE 272 mg/dL (70-104); POTASSIUM 4.1 mmol/L (3.5-5.1); SODIUM 137 mmol/L (136-145); TCO2 26 mmol/L (25-35)
--- NOTE | 2019-11-12 07:19 | Diag Imaging Result Doc PS360 ---
EXAM : CT LUMBAR SPINE W/O CONTRAST HISTORY: [place]. Lower extremity weakness,falls TECHNIQUE: CT lumbar spine without contrast COMPARISON: Recent plain films FINDINGS: There is mild curvature to the spine and there are [id number]-pnumzgue degenerative changes. These are most pronounced at L5-S1 where there is disc space narrowing, vacuum disc and prominent facet hypertrophy. No fracture. No subluxation. No disc herniation identified. Mild sclerotic bones. IMPRESSION: 1.No fracture or disc herniation identified 2.Mild scoliosis with degenerative spine changes most pronounced at L5-S1 3.Mildly sclerotic bones 4.A preliminary report was given at 2:33 AM This exam was performed using automated exposure control, adjustment of mA or kV according to patient size, and/or use of iterative reconstruction technique. Electronically signed by Benigno Trujillo 11/12/2019 7:17 AM
[2019-11-12 08:27] LABS: BANDS 3 % (0-1); LYMPHS 9 % (21-51); MONO 16 % (1-9); SEGS 72 % (42-75)
--- NOTE | 2019-11-12 08:54 | EKG Report ---
Test Performed on : 11/12/2019 07:27:46 AM Test Reason : Follow up ST T changes Blood Pressure : / mmHG Vent. Rate : 079 BPM Atrial Rate : 079 BPM P-R Int : 138 ms QRS Dur : 092 ms QT Int : 396 ms P-R-T Axes : 035 -18 003 degrees QTc Int : 454 ms Poor data quality, interpretation may be adversely affected Normal sinus rhythm. Normal ECG When compared with ECG of 11-NOV-2019 19:46, (Unconfirmed) aberrant conduction. is no longer present Nonspecific T wave abnormality now evident in Inferior leads T wave inversion no longer evident in Lateral leads Confirmed by Nora Carlton MD ([id number]) on 11/14/2019 4:13:48 PM
[2019-11-12] MEDS ORDERED: NEURONTIN PO SCH (09:00)
--- NOTE | 2019-11-12 09:03 | HISTORY AND PHYSICAL ---
ADDENDUM TO HISTORY AND PHYSICAL BY HEARING AID ASSEMBLY SUPERVISOR: I agree with most of the history and physical, assessment and plan. In brief, Mr. Jarvis is a 64-year-old man with past medical history of insulin- dependent diabetes mellitus, diabetic peripheral neuropathy, hypothyroidism, left-sided retinal detachment and bilateral lower extremity weakness, who comes in with chief complaint of recurrent falls and altered mental status. Patient was recently admitted inside [facility] in August 2019 for similar complaints of bilateral lower extremity weakness, for which no apparent cause could be found out and he was discharged home. Since then, he was receiving home physical therapy. He was in his usual state of health until today when he had started experiencing more number of falls, probably 6 or 7 times. After the falls, the patient was also noticed to be confused. So the had called EMS and the patient was brought to the emergency room. In the emergency room, the patient was hemodynamically stable with temperature of 98.4 degrees, pulse 91, respiratory rate 14, blood pressure 100/65. He was saturating 99% on 2 L nasal cannula. Considering his lower extremity weakness and altered mental status, the hospitalist team was consulted for further management, since CT scan head and cervical spine was unremarkable. SUBJECTIVE: General: At the time of my evaluation, the patient is alert and answers most questions appropriately. However, he does exhibit some repetitive behavior and needed to be redirected. Current vital signs: Temperature 98.4 degrees, pulse 85, respiratory 16, blood pressure 102/65. He is saturating 99% 2 L nasal cannula. HEENT: Oral cavity is dry. Lungs: Equal with no wheezes, rhonchi, crackles. Cardiovascular: S1, S2 normal. No murmur or gallop. Abdomen: Obese, soft, nontender. Active bowel sounds. Extremities: No lower extremity edema. Neurological: He is alert. He is oriented to himself. He could tell me his name and he tells me that he came to the hospital because his stomach was hurting. However, he is not entirely oriented with the situation. He does have left-sided ptosis, which he states is normal for him considering he previously had left-sided retinal detachment surgery. His sensation is intact in bilateral upper extremities and lower extremities. His knee jerks are 2+ in bilateral lower extremities. I could not elicit ankle jerks properly. He does have what appears to be trauma of the left great toe. It is hard to elicit plantar response on him, since he is feeling ticklish. LABORATORY: Hemoglobin of 14.1, platelet 198,000. ABG suggestive of PO2 of 75. He does have a BUN of 11, creatinine 0.7. His blood glucose is 266. Microbiology: Urine culture is pending. IMAGING: Head/cervical spine CT did not have any evidence of acute intracranial process. ASSESSMENT AND PLAN: 1. Acute encephalopathy. CT scan head did not detect any ischemic CVA or intra cerebral hemorrhage. He does not have fever or leukocytosis to suspect sepsis, though he does have pyuria and increased frequency of urination as per history. I am holding his home sedative hypnotic medications including gabapentin zolpidem, Flexeril, and benztropine as they may contribute to toxic metabolic encephalopathy. In the future, based on his course, he may need MRI of his brain. 2. Bilateral lower extremity weakness. Apparently, today's presentation is acute on chronic bilateral lower extremity weakness. I will get CT scan of the thoracic and lumbar spine to rule out any spinal canal stenosis or compression. Diabetic peripheral neuropathy could be the most likely explanation of his weakness. However, spinal cord compression or CVA needs to be ruled out. Based on his course, he may need MRI of his brain for further workup. 3. Positive barbiturate drug screen. This is likely in the setting of use of primidone which gets metabolizes into barbiturate compounds, which he takes for essential tremors. 4. He does have history of insulin-dependent diabetes mellitus, hypothyroidism, hyperlipidemia. I am going to keep him on sliding scale insulin, levothyroxine and atorvastatin respectively. 5. Pyuria. I will give him some intravenous fluids and start him on intravenous ceftriaxone. Follow up with urine culture results. 6. I will monitor patient inside the hospital as I await for the urine culture data and physical therapy will also be ordered. DISPOSITION: I will monitor patient inside the hospital. Plan of care discussed with the patient. My nurse practitioner did have a discussion with the patient's who had already left at the time of my encounter. cc: Chris Alcantar MD
[2019-11-12] MEDS: DEPAKOTE ER PO SCH ×2 (11:29→20:53)
[2019-11-12] MEDS: SYNTHROID PO SCH (11:29)
[2019-11-12] MEDS: LIPITOR PO SCH (11:29)
[2019-11-12] MEDS: THERA M PLUS PO SCH (11:29)
[2019-11-12] MEDS: LANTUS INSULIN SUBQ SCH (11:40)
--- NOTE | 2019-11-12 12:58 | HISTORY AND PHYSICAL ---
PRIMARY CARE PROVIDER: Dr. Jamari Russell. PATIENT PSYCHIATRIST: Dr. Delaney Telles. CHIEF COMPLAINT: Weakness, falls, and altered mental status. HISTORY OF PRESENT ILLNESS: Mr. Bro is a 64-year-old male with a past medical history most notable for diabetes mellitus, GERD, hypothyroidism, irritable bowel syndrome, hyperlipidemia, essential tremor and bipolar disorder. The patient's states that for the past few weeks now that he has been having increased weakness. This is most notable in his bilateral lower extremities. She reported that over the past couple weeks, he has had increased falls with him having total of 6 falls today prior to arrival. She also reports that for a few weeks now that he has been sort of talking out of the corner of his right mouth. The patient notes this as well, that it feels weird when he talks. She stated that she had not noticed him being confused until EMS arrived today to bring him to the hospital, and she stated that when she was asking him questions, he was not answering them correctly. He thought that she was his daughter, instead of his . His states that he has not had any recent changes to his current medications or any new medicines. She denied him having any known history of alcohol use, illicit drug use, any history of stroke or seizures. I asked her if it was possible that he may have taken too much of his medication. She states no; that she does administer his medications to him personally. There was no possible way that he may have gotten too much or possibly have taken his medication twice and not known it. The patient does have chronic low back pain. He also does have some diabetic neuropathy and takes gabapentin for this as well. She states that his pain has not worsened and he has not had any worsening of his symptoms associated with his neuropathy. She states that she stopped giving him his Flexeril due to he becomes so weak when he walks that this was causing him difficulty ambulating and she thought it was contributing to some of his falls. The patient states when he stands up that he just feels like his legs give away out from under him. I did ask her had he recently had any type of radiology studies to evaluate his low back pain and increased lower extremity weakness. The patient's denied this. The patient is reporting a headache. He also was squinting upon my examination; he did state that he was sensitive to the light. 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 He is awake and alert, though the patient is very restless and fidgety in the bed. He also did have these continuous mouth and tongue movements noted. He did have some slight asymmetry noted to his mouth on right corner. He is alert and oriented to person and place, though not time, he did know the President, though could not tell me his 's middle name at bedside. He was not really able to answer any questions related to history of present illness and past medical history. His did most of this. The patient and his denies him having any dizziness, chest pain, shortness of breath or cough. She states he does have some body aches at this time. This is due to his recent falls. He denied having any known body aches. No fever or chills. He did not have any abdominal pain, nausea, diarrhea or constipation. The patient's states the patient did vomit 1 time en route to the ER in the ambulance, though has not had any further episodes. He denies any nausea at this time. She denied him any hematemesis, hematochezia or melena. The patient denies any dysuria, though she has reported that he has had some urinary frequency. Other than the weakness in his lower extremities and his diabetic neuropathy, they report no other new numbness, tingling or swelling in extremities. VITAL SIGNS: Upon evaluation in the ER, vital signs reveal temperature 98.4 degrees, heart rate 91, respirations 16, blood pressure is 123/67, oxygen saturation is 98% per nasal cannula at 2 L. The patient has been afebrile. He has no leukocytosis noted. He was hyperglycemic. His hemoglobin A1C was elevated at 9.3. CK and troponin were within normal limits. Arterial blood gases were within normal limits. Urinalysis did show trace leukocytes, 10 to 20 white blood cells and 4+ bacteria. Urine drug screen was positive for barbiturates. The patient does take primidone. Serum alcohol was zero. They did perform radiology studies of CT head and C-spine without contrast, an x-ray hip with bilateral pelvis views which showed no acute abnormalities, lumbar spine which show showed some degenerative disk and facet disease. The sacrum and coccyx x- ray showed no acute abnormality, and a chest x-ray which showed no acute abnormalities as well. EKG showed sinus rhythm with premature atrial complexes with aberrant conduction and T-wave abnormality. There is quite a bit of artifact noted on this EKG, rate was 100. The patient was given 1 L normal saline bolus in the ER. At this time he will be admitted for further treatment and evaluation of his altered mental status, weakness and increased falls, as well as the UTI. REVIEW OF SYSTEMS: A 14 point review of systems was conducted with the patient. All were negative, except for pertinent positives mentioned in the above HPI. PAST MEDICAL HISTORY: 1. Diabetes mellitus. 2. Gastroesophageal reflux disease. 3. Chronic low back pain. 4. Hypothyroidism. 5. Irritable bowel syndrome. 6. Hyperlipidemia. 7. Essential tremor. 8. Bipolar disorder. 9. 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 PAST SURGICAL HISTORY: 1. Cataract removal. 2. Tonsillectomy. 3. Cholecystectomy. 4. Cyst removal from his neck. SOCIAL HISTORY: The patient is . He lives with his . She was present at bedside during my examination. At this time at home he does use the assistance of a walker, and only uses a cane while he is in an area such as their bathroom where his walker will not fit. He is a former smoker. He did previously smoke 2 packs per day for 37 years. He quit smoking in 2004. There is no known history of alcohol or drug use. FAMILY HISTORY: Positive for his father having a history of heart arrhythmia. His mother had a history of metastatic breast cancer. ALLERGIES: Patient has allergies to shellfish, seafood and iodine. HOME MEDICATIONS: 1. Aspirin 81 mg p.o. daily. 2. Atorvastatin 10 mg p.o. daily. 3. Cogentin 1 mg p.o. b.i.d. 4. Flexeril 10 mg p.o. daily. 5. Bentyl 10 mg p.o. a.c. and at bedtime. 6. Depakote extended release 500 mg p.o. b.i.d. 7. Cymbalta 20 mg p.o. daily. 8. Neurontin 30 mg p.o. daily. 9. Lantus 30 units subcutaneously b.i.d. 10. Humalog 12 units subcutaneously b.i.d. 11. Levothyroxine sodium 125 mcg p.o. daily. 12. Tradjenta 5 mg p.o. daily. 13. Melatonin 10 mg p.o. at bedtime. 14. Metformin 1000 mg p.o. b.i.d. 15. Multivitamin with calcium, iron and minerals one tablet p.o. daily. 16. Minipress 1 mg capsule p.o. at bedtime p.r.n. 17. Primidone 50 mg p.o. at bedtime. 18. Famotidine one tablet p.o. daily. 19. Gabapentin 800 mg p.o. at night. DIAGNOSTIC DATA/LABORATORY RESULTS: White blood cell count is 8230, hemoglobin 14.1, hematocrit 41.6, platelet count is 190. PT 13.4, INR 1.01, PTT is 30.7. Sodium 136, potassium 4.3, chloride 95, serum bicarbonate 22, BUN 11, creatinine 0.7, glucose 289. Hemoglobin A1c is 9.3, calcium 8.6, magnesium 1. Liver function tests within normal limits. CK 49, troponin T high sensitivity 19. Serum alcohol was zero. Arterial blood gases were obtained on room air; a pH 7.44, pCO2 of 40, PO2 75, HC03 27.1, O2 saturation was 97.5. Urinalysis was obtained via clean catch, was positive for protein, glucose, ketones, trace leukocytes, 10 to 20 white blood cells, and 4+ bacteria. Urine drug screen was positive for barbiturates. EKG showed sinus rhythm with premature atrial complexes with aberrant conduction, though there is a little bit of artifact noted to this EKG. The rate was 100, QTc was 430. Chest x-ray showed no acute abnormality. CT head and C-spine without contrast showed no evidence of acute intracranial disease. There were degenerative changes in cervical spine, stable since 06/20/2019. X-ray hip with pelvis bilateral views showed no evidence of acute bony disease. Lumbar spine x-ray showed degenerative disk and facet disease. Sacrum and coccyx x-ray showed no acute bony abnormality. All the above radiology results were per radiologist impression. Please see full report for all details and findings. PHYSICAL EXAMINATION: VITAL SIGNS: Temperature 98.4 degrees, heart rate 91, respirations 16, blood pressure is 123/67, oxygen saturation 99% on nasal cannula at 2 liters. GENERAL: Mr. Bro is a 64-year-old male, who was resting on the ER stretcher. He is in no acute distress. He was awake and alert, was only oriented to person and place; he is not oriented to time or situation. The patient was very restless and fidgety. He did have to be reoriented frequently and did ask the same questions more than once. HEENT: Head is atraumatic, normocephalic. Pupils are equal, round, reactive to light, were 3 mm bilaterally. EOMS were intact. The patient does have pretty much total loss of his vision in the left eye. He was still able to track for EOM test. Though, visual hernandes are untestable in his left eye due to his vision loss. Visual hernandes were intact in his right eye. Oral mucosa was dry. Oropharynx was clear. NECK: Supple. Trachea midline. No carotid bruits noted upon auscultation bilaterally. CARDIOVASCULAR: Patient has S1, S2 present. No murmurs, gallops, rubs appreciated. Regular rate and rhythm. PULMONARY: Patient has symmetrical chest expansion bilaterally. Lungs are clear to auscultation in bilateral hernandes. ABDOMEN: Soft, nontender, not distended. Bowel sounds are present in all 4 quadrants, were hyperactive. EXTREMITIES: No cyanosis or edema noted. Both motor and sensory were intact in all extremities. The patient does have some decreased sensation in his bilateral feet. This is secondary to diabetic neuropathy, though this has not worsened according to the patient. Radial and pedal pulses were 2+ bilaterally. INTEGUMENTARY: The patient's skin is pink and dry. NEUROLOGICAL: Patient is alert and oriented to person and place only. He was not oriented to time or situation. He was able to answer simple questions and follow commands. He does have equal hand grasps and muscle strength bilaterally, although this is weak bilaterally. He does have weakness noted in bilateral lower extremities as well. This did seem to be slightly worse on his left side than his right, but this was very slight. He did not report any new numbness or tingling in extremities, except for his previously existing sensation loss due to his diabetic neuropathy. He did seem to have a slight arm drift noted on the right, as well as he does appear to have a slight facial droop on the right corner of his mouth. He does seem to talk unusually out of his right side of his mouth as well. He did have some continuous mouth and tongue movements during my examination as well, though his speech was clear and understandable. ASSESSMENT AND PLAN: 1. Encephalopathy. This is of uncertain etiology, but could be multifactorial as well. At the time my examination, I did add an additional laboratory test of the magnesium, which did come back low at 1. This could be contributing to some of his confusion, as well as his weakness. We have ordered for this to be replaced with intravenous magnesium sulfate. We will repeat a basic metabolic panel and magnesium in the morning. The patient does take several medicines that could be contributing to his neurological symptoms and we are going to hold those at this time. He also does have a urinary tract infection as well. This could be contributing to some of his confusion. His CT of the head was negative for any acute intracranial pathology. We are going to hold some of his medicines, replete his magnesium, and treat his urinary tract infection. We will monitor his neurological status closely and see how he responds to this. If his mentation does not improve, we may need to consider further neurological diagnostic studies. He will be placed on the medical floor with continuous cardiac telemetry, have frequent vital signs and neurological checks. 2. Weakness, this could be multifactorial as well. The patient did have hypomagnesemia. We are replenishing this at this time. This could be due to secondary to physical deconditioning. Also, though, the patient has had this lower extremity weakness for several months, and his reports that over the past few weeks this has been worse. He has been having increased falls as well. We are going to order further radiology studies of a CT thoracic and lumbar spine without contrast. We will await those results and continue to follow. We will also have physical therapy evaluate the patient as well. 3. Frequent falls. This is likely secondary to the patient's increased weakness. We will continue treatment as mentioned above in #2. We have placed him on fall precautions. 4. Urinary tract infection. We have placed the patient on antibiotic of Rocephin. We have also ordered a urine culture. We will await urine culture results and continue to follow. 5. Uncontrolled diabetes mellitus. The patient's hemoglobin A1c was 9.3. We are going to place him on a sliding scale regular insulin and the pattern fingerstick blood sugars. He will be on a diabetic diet. 6. Hypothyroidism. We will continue his levothyroxine. We have ordered a TSH and a free T4. 7. History of bipolar disorder. He will be on the medical floor with telemetry. We will do frequent vital signs and neuro checks. He will review aspiration precautions, fall precautions, and incentive spirometry. We will repeat a CBC, BMP, magnesium in the morning. We are going to provide some IV hydration with normal saline at 100 mL/hour. We did discuss resuscitation status with the patient's . The patient is altered at this time. He is only oriented to person and place. He is not oriented to time or situation. His [place] does want CPR, intubation, emergency cardiac medicines and defibrillation performed if necessary. An order for a full code has been placed in the computer. Further orders and recommendations pending hospital course, diagnostic studies, and physician evaluation. Dictated by SAMIRA Chappell for Chris Alcantar MD cc: Chris Alcantar MD
--- NOTE | 2019-11-12 14:44 | PROGRESS NOTE ---
DATE: 11/12/2019 SUBJECTIVE: I have seen and examined Mr. Bro today in the emergency room. He is an admit holding in the ER. At the time of the encounter, there was no family member, but his nurse was there with me. Mr. Bro refers to be doing a little better. He said he has generalized pains and he feels weak. He was admitted last night because of altered mental status and generalized weakness, multiple falls. PHYSICAL EXAMINATION: General: Mr. Bro is a 64-year-old male. He is in bed. He is not in any cardiopulmonary distress. He is obese with BMI of 35.3. He looks remarkably dry on the mucous membranes. Chest: Good air entry bilateral. There were no crepitations. No rhonchi. Cardiovascular: Regular rate and rhythm. No murmurs, no rubs, no gallops. GI: Abdomen is soft, nontender. Bowel sounds are present but hypoactive. There is a Cartwright catheter in place. Extremities: No pedal edema. CLEANER: The patient is awake, alert, he is oriented to person and to place, but disoriented to time. He seems to have very good power of about 4- in all extremities. He is able to lift both upper and lower extremities against gravity and he pushed hard without any difficulties. I do not think he does have any neurological deficit. I think it is probably just all weakness from muscles. He is constantly moving the lower extremity, which gives me the impression if he has restless legs syndrome. OBJECTIVE: Vital signs: Blood pressure is 112/64, pulse of 78, respirations 20, temperature 98.2 degrees. IMAGING STUDIES: That were done on admission has also been reviewed. A chest x-ray showed no acute disease. A CT scan of the head and cervical spine shows no evidence of acute intracranial disease, degenerative disk spine disease, which has been stable since 2018. Hip and pelvic x-ray showed no evidence of bony abnormality. A lumbar x-ray showed degenerative disk and facet disease. A sacral x-ray showed no acute abnormality. Lumbar spine shows no fracture or disk herniation. There is mild scoliosis and degenerative spine changes most pronounced at L5-S1. The thoracic spine showed no acute bony abnormality. LABORATORY DATA: Has also been reviewed. Hemoglobin is down to 12.5, platelet count 195,000. Chemistry is also reviewed for most part unremarkable. Glucose is 272 with a A1c of 9.3. ASSESSMENT: 1. Generalized weakness with deconditioning. 2. Severe clinical volume depletion. We will continue with the IV fluids. 3. Alleged generalized weakness. I do not really see any motor deficit. I think the patient is generally weak, probably from the severe dehydration. However, other possible etiologies will need to be ruled out. I have reviewed all his imaging studies. For now, no cause for acute cord issues. I think if he continues to be symptomatic, even after adequate hydration, then we might need to follow up with MRIs. 4. Altered mental status. The patient is disoriented to time. I am not 100% sure about his baseline. We are going to continue to monitor this. 5. Diabetes mellitus type 2 with a presenting A1c of 9.3. We will continue with insulin regimen. 6. Suspected restless legs syndrome. Patient, in his medications seems to be on primidone and he is constantly moving the lower extremity, which gives the impression that he probably has that. We are going to start him back on his primidone. He is also on gabapentin. 7. Multiple psychotropic medications. The patient is on Flexeril, gabapentin, benztropine, primidone, Depakote, which all could potentially get him dizzy and be falling, but these medications will be withheld for now, hydrate him well and start reintroducing them little by little. 8. History of bipolar disorder. cc: Fish Horton MD MTDD
[2019-11-12] MEDS: NORCO-7.5 PO PRN (17:00)
[2019-11-12] MEDS: ATIVAN IV PRN (17:01)
[2019-11-12] MEDS: ASPIRIN PO SCH (17:04)
[2019-11-12] MEDS: MYSOLINE PO SCH (20:53)
[2019-11-13] MEDS: ROCEPHIN 1 GM in NS 50 ML IV SCH (00:25)
[2019-11-13] MEDS: NORCO-7.5 PO PRN ×3 (00:25→16:42)
[2019-11-13] MEDS: ATIVAN IV PRN ×3 (05:10→21:27)
[2019-11-13] MEDS: HUMULIN R SUBQ SCH ×4 (06:39→21:28)
[2019-11-13] MEDS: NEURONTIN PO SCH ×2 (07:58→08:09)
[2019-11-13] MEDS: SYNTHROID PO SCH ×2 (07:58→08:10)
[2019-11-13] MEDS: LIPITOR PO SCH ×2 (07:58→08:09)
[2019-11-13] MEDS: ASPIRIN PO SCH (07:59)
[2019-11-13] MEDS: THERA M PLUS PO SCH (07:59)
[2019-11-13] MEDS: DEPAKOTE ER PO SCH ×2 (07:59→21:31)
[2019-11-13] MEDS: LANTUS INSULIN SUBQ SCH (07:59)
--- NOTE | 2019-11-13 18:08 | PROGRESS NOTE ---
DATE: 11/13/2019 SUBJECTIVE: Mr. Bro this morning refers to be doing quite okay. was at the bedside at the time of the encounter. For the most part of the encounter he had his eyes closed and he said he was hurting everywhere. OBJECTIVE: Vital signs: Blood pressure is 126/64, pulse of 77 respiration is 18, temperature 97.9 degrees. The patient was saturating 100% on nasal cannula. General: Mr. rBo is a 64- year-old gentleman. He was in bed. He did not seem to be in any cardiopulmonary distress. HEENT: Mucosa was pink and slightly dry. Anicteric. Acyanotic. Neck: Supple. Chest: There was good air entry bilaterally. No crepitations. No rhonchi. GI: Abdomen was soft, nontender. Extremities: No pedal edema. VICE PRESIDENT NETWORK: Patient was awake, alert, and oriented to person and to place. Could not tell me the time or the date. He was able to recognize the who was at the bedside at the time of the encounter. Mr. Bro will also move all of his extremities pretty well on his own, but they seems to be slightly weaker all 4 of them, maybe about 4-/5. He had some Bell eminences hypertrophy that was noted on physical exam. His reflexes seems to be fairly preserved. Babinski was downgoing in both lower extremities. LABORATORY DATA: None for this morning. Glucose is 178. ASSESSMENT: 1. Generalized weakness and deconditioning associated with more pronounced lower extremity weakness. On physical exam he had generalized weakness. I did not elicit any weaker side over the other. I understand Mr. Bro has had this weakness for a long period of time. According to the , he has been evaluated in this hospital sometime last year and was sent home. He said he really has not shown any remarkable improvement, but it has gotten worse recently. 2. Status post multiple falls. I am unsure of the reason. So far his imaging studies have not shown any major abnormality. We are going to have an MRI to rule out any cord issues causing some of this myopathy. 3. Altered mental status seems to be improving. I think it is multifactorial. The patient has no focalization, so I think it is mainly global encephalopathy which could be toxic or metabolic. 4. Clinical volume depletion. Will continue with IV fluids. 5. Diabetes mellitus with presenting A1c of 9.3. The patient is on insulin regimen. Obviously his diabetes can also contribute to neuropathy causing some of his falling. 6. Restless leg syndrome. 7. Multiple psychotropic medications at home. 8. History of bipolar disorder. 9. Gram-positive cocci in the urine. The patient has been started on antimicrobial coverage. Pending the ID and sensitivity. 10. Influenza A positive. Patient has been started on Tamiflu. Please refer to the details of the progress note that has been written up by the medical student. cc: Fish Horton MD
[2019-11-13] MEDS: TAMIFLU PO SCH (21:31)
[2019-11-13] MEDS: MYSOLINE PO SCH (21:31)
[2019-11-14] MEDS: ROCEPHIN 1 GM in NS 50 ML IV SCH (01:12)
[2019-11-14] MEDS: NORCO-7.5 PO PRN ×3 (02:08→12:39)
[2019-11-14] MEDS: ATIVAN IV PRN ×2 (03:12→22:30)
[2019-11-14] MEDS: HUMULIN R SUBQ SCH ×4 (07:57→21:47)
[2019-11-14 07:59] LABS: BASO# 0.02 X1000 (0.0-0.2); BASO% 0.2 % (0.0-0.8); HEMATOCRIT 40.6 % (42.0-52.0); HEMOGLOBIN 13.9 g/dL (14.0-18.0); LYMPH# 1.15 X1000 (1.2-3.4); MCH 31.8 PG (27-31); MCHC 34.2 g/dL (33-37); MCV 92.9 FL (81-99); MONO# 1.65 X1000 (0.11-0.59); MONO% 18.6 % (1.7-9.3); MPV 9.4 FL (7.4-10.4); NEUT# 6.03 X1000 (1.4-6.5); NEUT% 68.2 % (42.2-75.2); PLT 168 X1000 (130-400); RBC 4.37 XMIL (4.7-6.1); RDW 12.6 % (11.5-14.5); WBC 8.85 X1000 (4.8-10.8)
[2019-11-14 08:04] LABS: AGAP 16; ALBUMIN 3.1 g/dL (3.5-5.0); BUN 7 mg/dL (8-22); CALCIUM 8.3 mg/dL (8.8-10.2); CHLORIDE 97 mmol/L (98-107); COSMO 276; CREATININE 0.6 mg/dL (0.7-1.2); ESTIMATED GFR > 60; GLUCOSE 178 mg/dL (70-104); MAGNESIUM 1.2 mg/dL (1.5-2.7); POTASSIUM 3.7 mmol/L (3.5-5.1); SODIUM 137 mmol/L (136-145); TCO2 24 mmol/L (25-35)
[2019-11-14 08:12] LABS: PTH INTACT 49 pg/mL (16-65)
[2019-11-14] MEDS ORDERED: MAGNESIUM SULFATE 2 GM/S.W.I. 2 GM/50 ML IVPB IV ONE (08:34)
[2019-11-14] MEDS ORDERED: LOVENOX SUBQ SCH (09:00)
[2019-11-14] MEDS: LIPITOR PO SCH (12:32)
[2019-11-14] MEDS: SYNTHROID PO SCH (12:32)
[2019-11-14] MEDS: DEPAKOTE ER PO SCH ×2 (12:32→21:47)
[2019-11-14] MEDS: THERA M PLUS PO SCH (12:32)
[2019-11-14] MEDS: ASPIRIN PO SCH (12:32)
[2019-11-14] MEDS: TAMIFLU PO SCH ×2 (12:32→21:47)
[2019-11-14] MEDS: NEURONTIN PO SCH (12:39)
[2019-11-14] MEDS: LANTUS INSULIN SUBQ SCH (12:53)
--- NOTE | 2019-11-14 14:06 | Diag Imaging Result Doc PS360 ---
MRI BRAIN W/O CONTRAST - 11/14/2019 INDICATION: AMS COMPARISON: Head CT 11/11/2019 FINDINGS: There is no area of restricted diffusion. The ventricles and sulci are normal in size and contour. No intracranial mass or hemorrhage. Midline structures including the optic chiasm and pituitary are normal. IMPRESSION: Negative exam. Electronically signed by Sarthak Kim 11/14/2019 2:04 PM
--- NOTE | 2019-11-14 14:09 | Diag Imaging Result Doc PS360 ---
MRI CERVICAL SPINE W/O CON - 11/14/2019 INDICATION: quadriparesis COMPARISON: CT from 11/11/2019 FINDINGS: There is severe patient motion artifact. Alignment is straightened. No fracture or subluxation. There is congenitally narrow central canal at C3-C5. The worst level is C3-C4. There is also disc bulge at this level flattening the anterior cervical spinal cord. This produces severe central canal stenosis. There is advanced multilevel degenerative disc disease with severe narrowing. There is a disc bulge at C6-C7 causing mild central canal stenosis. IMPRESSION: 1. Congenitally severely narrow central canal at the upper cervical spine. There is also a large disc bulge at C3-C4. This results in severe central canal stenosis at C3-C4. 2. Advanced multilevel degenerative disc disease. Electronically signed by Sarthak Kim 11/14/2019 2:07 PM
--- NOTE | 2019-11-14 14:11 | Diag Imaging Result Doc PS360 ---
MRI LUMBAR SPINE W/O CONTRAST - 11/14/2019 INDICATION: quadriparesis COMPARISON: CT from 11/12/2019 FINDINGS: There is moderate patient motion artifact. Alignment is anatomic. No fracture or subluxation. There is advanced disc degeneration at L5-S1. There is moderate multilevel facet degeneration. No large disc bulge or herniation. No severe central canal stenosis. IMPRESSION: Moderately advanced lumbar spondylosis but no severe central canal stenosis. Electronically signed by Sarthak Kim 11/14/2019 2:09 PM
[2019-11-14] MEDS ORDERED: ROCEPHIN 2 GM in NS 50 ML IV SCH (15:15)
[2019-11-14] MEDS ORDERED: VANCOMYCIN IV PER PHARMACY MISC SCH (15:30)
[2019-11-14 17:04] LABS: IRON SATURATION 15 %; TIBC 185 ug/dL; TOTAL IRON 28 ug/dL (53-167); UNBOUND IRON 157 ug/dL (112-346)
[2019-11-14 17:29] LABS: FERRITIN 236 ng/mL (30-400)
[2019-11-14] MEDS: VANCOMYCIN 2,000 MG in NS 500 ML IV SCH (18:25)
--- NOTE | 2019-11-14 18:58 | PROGRESS NOTE ---
DATE: 11/14/2019 SUBJECTIVE: I have seen and examined Mr. Bro today. He continues to be remarkably altered and there was no family member at the bedside at the time of the encounter. OBJECTIVELY: Vital: Blood pressure is 120/76, pulse of 71, respiration is 22, temperature 97.9 degrees. The patient did have a mild temp of 100 degrees early on today. General: Mr. Bro is a 64-year-old gentleman. He is in bed. He did not seem to be in any cardiopulmonary distress. HEENT: Mucosa is pink, slightly dry. Anicteric. Acyanotic. Neck: Seems to be quite rigid in all directions when you try to explore it. Unsure if he has any nuchal rigidity. I think it is just rigid everywhere you turn his head. When I ask him he said it is just because it is hurting him. Chest: Good air entry bilaterally. I did not hear any crackles, crackles or rhonchi. Cardiovascular: Regular rate and rhythm. No murmurs, no rubs, no gallops. GI: Abdomen was soft. Bowel sounds present. Extremities: No pedal edema. ORACLE APPLICATION ARCHITECT: Patient is lethargic. He barely opened his eyes to painful stimulation. He follows some commands. He is able to move his extremities, but he seems generalized weak. He is able to lift both lower extremities against gravity when he is asked to, but he is not able to sustain them for a long time. He does have some reflexes. His pupils are equal and they are reactive and he is able to stick out his tongue when asked to. LABORATORY DATA: His white cell count is normal. Hemoglobin and platelet count also normal. Chemistry is also reviewed, for most part unremarkable. Glucose is 178, magnesium is 1.2. The patient's MRI of the lumbar spine shows moderate advanced lumbar spondylosis, but no severe central canal stenosis. 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 There is also a large disk bulging at C3-C4. This results in a severe canal stenosis at C3-C4. There is an advanced, multilevel, degenerative disk disease. A brain MRI was negative. ASSESSMENT: 1. Generalized weakness and deconditioning with pronounced lower extremity weakness. Physical therapy has been consulted. 2. Altered mental status with no focalization. MRI is negative. This appears to be global encephalopathy either from toxic metabolic, drugs or infectious causes on background of cognitive decline. I Neurology is consulted. Mr. Bro shows some stiffness moving the neck in all direction. He had mild fever and he is altered, which makes meningitis a possibility. I are going to to increase the ceftriaxone to meningeal dose, add vancomycin and wait for both infectious disease and neurology input. 3. Clinical volume depletion. We will continue with IV fluids. 4. Diabetes mellitus with presenting A1c of 9.3. The patient is on insulin regimen. 5. Status post multiple falls at home, unsure the reason why. MRI seems to suggest some chronic disk disease. There is a severe cervical spine stenosis. I have reached out to [facility] to look at the image and see if they want to see the patient over there. I am awaiting their response. 6. Influenza A positive. The patient is on Tamiflu. 7. Staph epidermidis urinary tract infection. The patient is on antimicrobial coverage. 8. History of bipolar disorder. The patient is on Depakote, gabapentin, benztropine, has been evaluated in the past by Dr. Renae. PLAN: So, in general Mr. Bro is a 64-year-old gentleman who has multiple comorbidities, was brought into the hospital for the past 2 days because he has been remarkably getting weaker, falling multiple times. Initial imaging studies including CT scans did not show anything acute. MRI today, shows some chronic changes in the cervical and the lumbar spine MRI of the brain was negative. There was the concern if he has any infectious encephalopathy/meningitis. We have consulted ID on that. Neurology has also been consulted and I have reached out to [facility] neurosurgery to look at the image. I am still waiting a call from Neurosurgery. cc: Fish Horton MD Addendum: Dramatic Agent from Transfer center tells me has no beds so I should call [facility]ance tomorrow. [facility]
[2019-11-14] MEDS: MYSOLINE PO SCH (21:47)
[2019-11-15] MEDS ORDERED: ATIVAN IV ONE (00:26)
[2019-11-15] MEDS: VANCOMYCIN 2,000 MG in NS 500 ML IV SCH ×2 (03:25→17:27)
[2019-11-15] MEDS: ATIVAN IV PRN ×2 (03:25→20:00)
[2019-11-15] MEDS: HUMULIN R SUBQ SCH ×4 (06:59→21:50)
--- NOTE | 2019-11-15 08:55 | NEUROLOGY CONSULTATION ---
DATE: 11/14/2019 REASON FOR CONSULTATION: Altered mental status and generalized weakness. HISTORY OF PRESENT ILLNESS: This is a 64-year-old male with a history of diabetes and diabetic neuropathy, chronic back pain, and reportedly chronic bilateral lower extremity weakness who was admitted 2 days ago with complaints of altered mental status with recurrent falls and weakness. History is from chart review, as there is not family currently available to provide further history, and the patient is unable to do so due to his mental status. The patient was here in August last year for similar symptoms. At this time he did physical therapy but did not complete it. He returns this time after having around 6 falls, I believe the day of admission or in the days leading up to admission. He became altered during that time. He was not answering questions correctly when EMS arrived. There was not mention of new bowel or bladder difficulties. There was not mention of new sensory loss or disturbance. There was not a reported loss of consciousness. Actually the had reported some urinary frequency recently. Initial lab work revealed A1c of 9.3, normal CK, urinary tract infection, flu positive. He has had extensive imaging, including CT of the head and cervical spine, showing no acute intracranial disease and showing degenerative cervical spine stable since June 2019. Lumbar spine CT, thoracic spine CT. MRI of the brain showing no acute findings. Lumbar spine MRI showing moderately advanced lumbar spondylosis, but no severe central canal stenosis. Cervical spine MRI showing congenitally severely narrow central canal at the upper cervical spine, as well as a large disk bulge at C3-C4 with resulting severe central canal stenosis at C3-C4, advanced multilevel degenerative disk disease. The patient was unable to tolerate thoracic spinal MRI or contrast. PAST MEDICAL AND SURGICAL HISTORY: Uncontrolled diabetes, diabetic peripheral neuropathy, bilateral hand tremor, GERD, chronic back pain, irritable bowel syndrome, hypothyroidism, hyperlipidemia, bipolar disorder. Retinal detachment on the left, cataract surgery, tonsillectomy, cholecystectomy. FAMILY HISTORY: Positive for breast cancer in his mother. Cardiac arrhythmia in his father. SOCIAL HISTORY: He is and lives with his . He is a former smoker. No alcohol or drug use. He typically uses a walker. ALLERGIES: Listed to latex, shellfish, iodine. HOME MEDICATIONS: Are numerous and reviewed in the chart. Notable for Flexeril, Cogentin, Depakote, Cymbalta, Neurontin, primidone. REVIEW OF SYSTEMS: Unobtainable due to the patient's altered mental status. PHYSICAL EXAMINATION: Vital Signs: He had a temperature of 100 degrees at 4:00 a.m. and none since. Blood pressure 120/76, pulse 71, respirations 21, and oxygen saturation 96% on room air. Neurologic: Mr. Bro is alone in the room when I enter. His eyes are open. He is lying in bed with the head of bed elevated, wearing only a diaper. He is not using any blankets. He regards briefly as I enter the room. He is inattentive for the most part. He is able to tell me his name, but otherwise is not oriented to location, time, situation, and so forth. He can follow a couple of simple commands, but in general is not attentive. There is a paucity of speech. He is coughing frequently. Pupils are equal, round, and reactive. Gaze is conjugate. Ocular movements appear to be full in the horizontal planes. There is inconsistent blink to threat. Face appears symmetric. He can hear. He is not attentive enough for accurate sensory testing or even for complete motor testing. He relays intact pinprick sensation over the neck, chest, abdomen, and back, as well as the limbs, but again, I am not certain that he is attentive enough. He does not relax easily. Plastic Duplicator are good and equal. Biceps and triceps appeared to be preserved and equal. I can overcome the deltoids bilaterally, grading 4/5. He is at least antigravity with the bilateral hip flexors. I could not get the patient to participate otherwise in the lower extremities for detailed testing, and the upper extremities were limited at best as well. Reflexes are absent at the ankles, 1+ at the knees, wrists, and biceps bilaterally. There is no clonus. Plantar response is flexor bilaterally. I did not test his gait. No meningismus. DIAGNOSTICS: As per above. Labs reviewed in the chart. Magnesium 1 on admission. Calcium has been low 8.6 and 8.3. BUN and creatinine have been elevated. Blood glucoses have been elevated with a hemoglobin A1c of 9.3. Vitamin B12 greater than 2000, folate 39.6. RPR nonreactive. Toxicology presumptive positive for barbiturates. Serum ethyl alcohol zero. He is influenza A positive and growing Staphylococcus epidermidis in the urine. ASSESSMENT AND PLAN: 1. Global encephalopathy without definite focal feature. The etiology is uncertain. It may be multifactorial with contributions from current urinary tract infection and numerous central nervous system active medications, which have been held or reduced. Negative brain MRI is reassuring. I am not certain about his baseline cognitive status, but if he does have a cognitive impairment syndrome, then he would be at risk for encephalopathy and prolonged encephalopathy with any toxic metabolic or other disturbance. I would continue following clinically and see if his encephalopathy improves with treatment of his medical issues. If not, I would consider routine EEG. 2. Generalized weakness with reports of chronic lower extremity weakness for some time now. Unfortunately, I do not have first-hand account of the events that have occurred recently and his status in the past. The patient does have reported chronic back pain and uses a walker to ambulate. He has degenerative disk disease, and he appears to be a set up for a cervical cord injury with falls. I do not see definite evidence of myelopathy, central cord syndrome, spinal shock,etc on otherwise limited exam. I have been told that Neurosurgery at [place] was contacted to review the images, and I think that is reasonable. Other factors which may be contributing to this presentation include his uncontrolled diabetes and diabetic peripheral neuropathy and also his poor mental status, which is likely contributing to his lack of participation with the exam overall. Thank you for the consult. cc: MD BISMARK Jimenez
[2019-11-15] MEDS: NEURONTIN PO SCH (12:27)
[2019-11-15] MEDS: LIPITOR PO SCH ×2 (12:27→12:42)
[2019-11-15] MEDS: THERA M PLUS PO SCH (12:27)
[2019-11-15] MEDS: ASPIRIN PO SCH (12:27)
[2019-11-15] MEDS: SYNTHROID PO SCH (12:27)
[2019-11-15] MEDS: TAMIFLU PO SCH ×2 (12:27→23:52)
[2019-11-15] MEDS: LANTUS INSULIN SUBQ SCH (12:28)
[2019-11-15] MEDS: DEPAKOTE ER PO SCH ×2 (12:28→23:52)
[2019-11-15] MEDS: MAXIPIME 2 GM/NS 2 GM/100 ML IVPB IV SCH (12:29)
--- NOTE | 2019-11-15 14:22 | INFECTIOUS DISEASE CONSULT REP ---
DATE: 11/15/2019 CONCLUSION: The patient has a markedly altered mental status. He does have a Staph epidermidis urinary tract infection and also has influenza A and possibly either one or both of the infections could be causing the patient to have an altered mental status. The patient may have a central nervous system infection such as meningitis or encephalitis. The patient's drug screen was positive for barbiturates and this may be also possibly causing the patient to have an altered mental status. RECOMMENDATIONS: I have substituted cefepime for Rocephin. I agree with treating the patient with vancomycin for his Staph urinary tract infection. Also, I agree with treating the patient with Tamiflu for his influenza A infection. I have ordered blood cultures also and I am going to request that neurology do a spinal tap on the patient. DISCUSSION: The patient is unable provide a history and no 1 is present in the patient's room. According to the information in the computer, the patient came to the hospital with a chief complaint of weakness, falls, and an altered mental status. The patient has a history of diabetes mellitus, gastroesophageal reflux disease, hypothyroidism, irritable bowel syndrome, hyperlipidemia, essential tremor, and bipolar disorder. The patient's CBC shows a white count of 8,850, hemoglobin 13.9, and platelet count 168,000. Creatinine is 0.6. GFR is greater than 60. Liver function studies are normal. RPR is nonreactive. Drug screen was positive for barbiturates. As mentioned above, the patient's urine is growing Staphylococcus epidermidis and the patient tested positive for influenza A. Test for group A strep of the throat was negative. I have just ordered blood cultures and thus, they are pending. The patient had an MRI of the brain which showed no abnormality. He has had MRI of the spine and the patient has degenerative joint disease, but no evidence of an infection. PAST SURGICAL HISTORY: Positive for cataract removal, tonsillectomy, cholecystectomy, and removal of a cyst from his neck. SOCIAL HISTORY: The patient is . He lives with his . At home when he walks he uses a walker or a cane. He smoked 2 packs per day of cigarettes for 37 years; he quit in 2004. There is no history of alcohol or drug abuse. FAMILY HISTORY: Positive for cardiac arrhythmia and breast cancer. ALLERGIES: The patient has allergies to shellfish, seafood, and iodine. HOME MEDICATIONS: Include aspirin, atorvastatin, Cogentin, Flexeril, Bentyl, Depakote, Cymbalta, Neurontin, insulin, Synthroid, Tradjenta, melatonin, metformin, vitamins and minerals, Minipress, primidone, famotidine, and gabapentin. PHYSICAL EXAMINATION: Vital Signs: The patient's temperature is 100.2 degrees, pulse 74, respirations 24, blood pressure 103/44. The patient weighs 290 pounds. General: This is a obese, middle-aged male. He is lethargic and occasionally he moves in his bed, turning to 1 side or another, but for the most part, he does not move and there is no tremor. Head, eyes, ears, nose, throat: No drainage noted from the nose or ears. Neck: No meningismus. Lungs: Clear to auscultation. Cardiovascular: Heart rate is regular. Abdomen: Soft and not tender. Neurologic: The patient has an altered mental status. He does not respond to verbal stimuli. He rarely moves, as mentioned above. There is no tremor. Integument: No rash noted. Thank you for the consult. cc: Zackery Carter MD
[2019-11-15] MEDS: NORCO-7.5 PO PRN ×2 (17:43→23:51)
--- NOTE | 2019-11-15 22:45 | NEUROLOGY PROGRESS NOTE ---
DATE: 11/15/2019 SUBJECTIVE: No major overnight events. OBJECTIVE: Vital signs.: Currently he is afebrile. He had another temperature of 100.2 degrees at 4 a.m., otherwise afebrile. Blood pressure 114/63, pulse 71. General: Mr. Bro is supine in bed asleep, snoring. He is groggy. He arouses, regards and drifts easily back to sleep. He requires repeated arousal to maintain some amount of attention and alertness. He was able to state his name and he knew he was in the hospital, but he was not otherwise oriented. I was able to get him to follow a few commands during testing of the upper extremities, though again he frequently dozes. His vocal music instructor are strong as are the biceps and triceps bilaterally. The deltoids are 4/5, I believe, and he indicates some shoulder pain. He is at least 4/5 in the bilateral hip flexors. I could not get the patient to remain awake enough from the foot of the bed while attempting to perform a more detailed strength testing of the lower extremities. He is not alert enough for detailed sensory testing, but he does grimace and he does withdraw all extremities equally to noxious stimuli. He tends to flex the bilateral hips and rotate the legs with gravity as a response. As he was more asleep today, I was able to elicit ankle jerks which are 1+ bilaterally and symmetric. Knee jerks are 1+ on the right and trace to 1+ on the left. The latter may have been affected by positioning. Reflexes are 1+ at the wrists and biceps bilaterally. There is no clonus. Plantar response is silent today bilaterally. No meningismus. LABORATORY: Labs reviewed in the chart. Normal white count. His magnesium of note was 1 on admission currently 1.2 when checked yesterday. ASSESSMENT AND PLAN: 1. Remains global encephalopathy without definite focal feature. Etiology may be multifactorial with urinary tract infection, influenza A and numerous FORENSIC TECHNICIAN active medications which were held. Again, if he has a baseline cognitive impairment, which I am not certain of, then he would be at risk for developing encephalopathy. If he does not perk up, I would recommend a routine EEG. Dr. Carter had discussed consideration for lumbar puncture for the patient, in particular to evaluate for viral meningitis or HSV, cryptococcus. I believe he has several reasons why he would have an altered mental status; however I had considered performing the lumbar puncture for that purpose. I was waiting to see if Neurosurgery had reviewed the cervical spine images and have not seen Documentation of such yet. 2. There has been report of generalized weakness as well as chronic lower extremity weakness. I have not been able to get first-hand account of his history, his baseline functional status and what has been different now. He has chronic changes on the cervical MRI and is a set up for a cervical cord injury with falls of which he has had many recently. However, I do not see evidence of myelopathy, central cord syndrome or spinal shock on somewhat limited bedside exam. His mental status is clearly limiting his participation in the exam. He was not able to complete thoracic MRI and today based on the fact that I have been less readily able to fully examine the lower extremities for strength, you might consider attempting to obtain the thoracic MRI,as strength in the upper extremities is reasonably preserved. Previous hospitalist reported he had contacted Neurosurgery at [place] and I have not seen what they have said about his imaging. Again, other contributing factors could be diabetic peripheral neuropathy. cc: Bethany Lynne MD [facility]
[2019-11-15] MEDS: MYSOLINE PO SCH (23:52)
--- NOTE | 2019-11-16 | PROGRESS NOTE ---
DATE: 11/15/2019 SUBJECTIVE: Patient has no major complaints. OBJECTIVE: Vital signs: Blood pressure 147/ , heart rate 63, respiratory rate 20, temperature 97.9 degrees, 94% on room air. Cardiovascular: Regular rate and rhythm. Pulmonary: Bilateral breath sounds, clear to auscultation. Gastrointestinal: Soft, nontender. Neurologic: Nonfocal. However, he is still somewhat altered. LABORATORY DATA: No white count today. No labs today. PROBLEM LIST: 1. Encephalopathy, which is unclear, but there is a concern over possible meningitis. I do think an LP is indicated. We will pursue that. Neurology is going to evaluate that and we will continue to follow. 2. Diabetes mellitus. We will continue to monitor. Continue sliding scale insulin and follow. 3. Multiple falls. He does have chronic stenosis, but this may be more of a chronic issue. Neurosurgery has evaluated the patient, but I do not think recommended any anything acutely. 4. Influenza A. He will continue Tamiflu. 5. Staphylococcus epidermidis urinary tract infection. We will continue antibiotic, which are cefepime and vancomycin. DISPOSITION: Pending his clinical status and pending evaluation for meningitis. cc: Godwin Saenz MD
[2019-11-16] MEDS: TYLENOL PO PRN (00:45)
[2019-11-16] MEDS: MAXIPIME 2 GM/NS 2 GM/100 ML IVPB IV SCH (01:16)
[2019-11-16] MEDS: ATIVAN IV PRN ×4 (01:17→23:14)
[2019-11-16] MEDS: VANCOMYCIN 2,000 MG in NS 500 ML IV SCH (07:00)
[2019-11-16] MEDS: HUMULIN R SUBQ SCH ×4 (07:00→23:28)
[2019-11-16 07:19] LABS: BASO# 0.04 X1000 (0.0-0.2); BASO% 0.8 % (0.0-0.8); EOS# 0.21 X1000 (0.0-0.7); EOS% 4.2 % (0.0-10.0); HEMATOCRIT 35.2 % (42.0-52.0); HEMOGLOBIN 11.6 g/dL (14.0-18.0); LYMPH# 1.63 X1000 (1.2-3.4); LYMPH% 32.6 % (20.5-51.1); MCH 30.9 PG (27-31); MCV 93.6 FL (81-99); MONO# 0.72 X1000 (0.11-0.59); MONO% 14.4 % (1.7-9.3); MPV 9.1 FL (7.4-10.4); PLT 183 X1000 (130-400); RBC 3.76 XMIL (4.7-6.1); RDW 12.7 % (11.5-14.5)
[2019-11-16 08:06] LABS: AGAP 12; BUN 7 mg/dL (8-22); CALCIUM 8.4 mg/dL (8.8-10.2); CHLORIDE 102 mmol/L (98-107); COSMO 287; CREATININE 0.5 mg/dL (0.7-1.2); ESTIMATED GFR > 60; GLUCOSE 312 mg/dL (70-104); POTASSIUM 3.2 mmol/L (3.5-5.1); SODIUM 139 mmol/L (136-145); TCO2 25 mmol/L (25-35)
[2019-11-16] MEDS: THERA M PLUS PO SCH (12:14)
[2019-11-16] MEDS: TAMIFLU PO SCH ×2 (12:14→23:28)
[2019-11-16] MEDS: DEPAKOTE ER PO SCH ×2 (12:14→23:27)
[2019-11-16] MEDS: SYNTHROID PO SCH (12:14)
[2019-11-16] MEDS: LANTUS INSULIN SUBQ SCH (12:14)
[2019-11-16] MEDS: LIPITOR PO SCH (12:14)
[2019-11-16] MEDS: NEURONTIN PO SCH (12:14)
[2019-11-16] MEDS: ASPIRIN PO SCH (12:14)
[2019-11-16 13:56] LABS: PROTEIN CSF 32.9 mg/dL (15-45)
[2019-11-16 13:59] LABS: APPEARANCE CLEAR; GLUCOSE CSF 159 mg/dL (39-75); RBC BF 0 /cumm; WBC BF 1 /cumm
[2019-11-16] MEDS: SEPTRA DS PO SCH ×2 (17:40→23:27)
[2019-11-16] MEDS ORDERED: KLOR-CON PO ONE (18:27)
--- NOTE | 2019-11-16 18:57 | NEUROLOGY PROGRESS NOTE ---
DATE: 11/16/2019 LOCATION: Room 404. SUBJECTIVE: Mr. Bro was admitted several days ago with history of falls and question of mental status change. Dr. Lynne saw him earlier this week for Neurology. OBJECTIVE: Today, he is awake, alert, attentive, answering questions appropriately. He was oriented to all parameters. He discussed recent news with accurate detail. Speech is not significantly dysarthric. Language function is intact on brief bedside testing. I did not test his cognitive function more thoroughly. He has a little bit of guarding in the neck consistent with the imaging evidence of degenerative spine changes, but there is no meningismus. Head is unremarkable. Visual hernandes are full with the right eye. He has very poor vision in the left eye. Left lid is drooped chronically. Facial motility is otherwise symmetric. Tongue is midline. He can hear. He has good power in the arms and legs. He reports discomfort in the joints, particularly in the knees, limiting effort at times, but he was able to demonstrate at least 4+/5 power in all groups in the legs. Limb tone is symmetric. Plantar response is silent bilaterally. He has a stocking pattern of sensory loss on brief bedside testing. Proprioception is slightly diminished at the great toe MTP joint bilaterally. I did not test his gait. He has some irregular shaking in the limbs today, but not definite classifiable tremor and I did not see definite action tremor. He has been afebrile for more than 24 hours, but did have some fairly mild temperature elevations a few days ago. Blood sugars have been in the 200s. Chemistry showed very low magnesium which has improved. Calcium has been slightly low. CK is normal. TSH and free T4 were normal on admission. Medicines include at least 7 with potential PRODUCT ACCOUNTANT activity. He takes primidone at low dose for tremor. That was started about 10 months ago in my office and he did not follow up as requested to report benefit or lack of benefit. He has continued primidone 50 mg daily. He takes divalproex chronically for psychiatric reasons. We have not had valproic acid level checked this admission and I will order that today. He has lorazepam and hydrocodone ordered p.r.n. here with doses of each in the last 24 hours. Urine drug screen was positive for barbiturate, consistent with his hoe primidone dose. Drug screen was negative for benzodiazepine and for opiate. There is concern for PRODUCT ACCOUNTANT infection. Lumbar puncture has been considered. I discussed that with Mr. Bro. He is willing to proceed and I will attempt LP. Thanks for asking Neurology to see Mr. Bro. cc: MD BISMARK Phillips III
--- NOTE | 2019-11-16 19:29 | OPERATIVE NOTE ---
PROCEDURE DATE: 11/16/2019 DESCRIPTION OF PROCEDURE: Lumbar puncture was done at the L4 space with opening pressure 13 cm of CSF. Clear fluid was obtained and sent to the lab. No closing pressure measured. No immediate complications apparent. He tolerated the procedure well. cc: Yohana Sosa III, MD MTDD
--- NOTE | 2019-11-16 20:02 | INFECTIOUS DISEASE PROGRESS NO ---
DATE: 11/16/2019 PRESENT ILLNESS: The patient has influenza and Staphylococcus epidermidis urinary tract infection. These 2 infections may be the cause of the patient's altered mental status. MEDICATIONS: The patient currently is on day 3 of Tamiflu and day 1 of cefepime and vancomycin. OBJECTIVE: Vital signs: Temperature is 96 degrees, pulse 58, respirations 16, blood pressure 137/92. Generally this is a chronically ill-appearing, middle-aged male. He is in no acute distress today. He is much more alert than he was yesterday. Head, eyes, ears, nose and throat: He can hear my spoken words and see near objects. He does not have any white coating on his tongue. Neck: No meningismus. Lungs clear to auscultation. Cardiovascular: Regular heart rate. Abdomen soft and nontender.Neurologic: The patient is slightly lethargic but much more awake than he was yesterday. He can move his extremities to request. He can carry on a conversation. He does not have a tremor. LABORATORY DATA: The RPR is nonreactive. The rapid group A streptococcus antigen was negative. The urine grew Staphylococcus epidermidis. The patient's influenza A was positive. The CBC shows a white count of 5000, hemoglobin 11.6, platelet count 183,000. Creatinine 0.5. GFR is greater than 60. ASSESSMENT AND PLAN: 1. The patient has influenza, for which he is on Tamiflu. He also has a Staphylococcus epidermidis urinary tract infection for which he is on Septra. Some of the side effects of the medications including rash, diarrhea, renal toxicity and ototoxicity have been explained to the patient, who agrees with treatment. I have discontinued cefepime and vancomycin. The patient had altered mental status. I think this was secondary to him having influenza and Staphylococcus epidermidis urinary tract infection. My plan is to discontinue cefepime and vancomycin. Continue Tamiflu for 2 more days to complete a 5-day treatment course and start the patient on Septra Double-Strength 1 every 12 hours. Some of the side effects of Septra and Tamiflu including rash, diarrhea, avoid sunlight, hematotoxicity and renal toxicity have been explained to the patient, who agrees with treatment. COMORBIDITIES: Diabetes mellitus, gastroesophageal reflux disease, hypothyroidism, irritable bowel syndrome, hyperlipidemia, essential tremor and bipolar disorder. Also the patient was a heavy cigarette smoker who stopped in 2004. 4. Also the patient is a heavy cigarette smoker, which he stopped in 2004. cc: Zackery Carter MD MTDD
--- NOTE | 2019-11-16 21:17 | PROGRESS NOTE ---
DATE: 11/16/2019 SUBJECTIVE: The patient has no major complaints. He is alert and oriented, but then he just constantly demands food, and he is unpleasant if he does not get his demands met immediately. I do not know, there is an immature quality to his insight and things of that nature, so he is not at baseline. OBJECTIVE: Blood pressure 130/67, heart rate 58, respiratory rate 18, temperature 97.3 degrees, 93% on room air.Cardiovascular: Regular rate and rhythm. Pulmonary: Bilateral breath sounds, clear to auscultation. GI: Soft, nontender, nondistended. Bowel sounds are positive. LABORATORY DATA: Blood sugars are still elevated, but he is not being compliant with his diet. White count is 5, hemoglobin and hematocrit 11 and 35, platelets 183,000. Potassium 3.2. His CSF had no cells. Glucose was elevated. Protein was a little bit high, but to me he looked pretty aseptic. I just did not really get a sense that this was meningitis in any case. ASSESSMENT AND PLAN: 1. Encephalopathy. He seems to be a little clearer, although still disoriented, not quite sure what the etiology is. He had a lumbar puncture. I think we will most likely rule out meningitis. I did discuss with Dr. Cavanaugh in [facility]. He did not feel that the cervical stenosis was necessarily causing any issues right now. He was not also completely sure after reviewing the films that it was a critical stenosis, because there was so much motion artifact that may have affected the reading, but it was at this point an outpatient issue. Neurology will continue to monitor here. I am not sure at this point if there are some psychiatric issues, but we will work with him in physical therapy. 2. Type 2 diabetes. Encourage compliance with his medications. 3. Influenza A. He is on Tamiflu, which should just be for a total of 5 days. 4. Staphylococcus epidermidis urinary tract infection. He is on antibiotics. 5. Disposition: I anticipate discharge soon, but we are waiting on his mental status to improve. cc: Godwin Saenz MD
[2019-11-16] MEDS: HALDOL IM PRN (23:27)
[2019-11-16] MEDS: MYSOLINE PO SCH (23:28)
[2019-11-17] MEDS: HUMULIN R SUBQ SCH ×3 (07:30→16:56)
[2019-11-17] MEDS: NORCO-7.5 PO PRN ×3 (10:08→23:22)
[2019-11-17] MEDS: HALDOL IM PRN (10:08)
[2019-11-17] MEDS: SEPTRA DS PO SCH ×2 (14:35→23:13)
[2019-11-17] MEDS: NEURONTIN PO SCH (14:35)
[2019-11-17] MEDS: THERA M PLUS PO SCH (14:35)
[2019-11-17] MEDS: LIPITOR PO SCH (14:35)
[2019-11-17] MEDS: DEPAKOTE ER PO SCH ×2 (14:36→23:13)
[2019-11-17] MEDS: TAMIFLU PO SCH ×2 (14:36→23:13)
[2019-11-17] MEDS: SYNTHROID PO SCH (14:36)
[2019-11-17] MEDS: ASPIRIN PO SCH (14:36)
[2019-11-17] MEDS: LANTUS INSULIN SUBQ SCH (14:37)
[2019-11-17] MEDS: ATIVAN IV PRN ×2 (15:18→23:23)
--- NOTE | 2019-11-17 19:55 | PROGRESS NOTE ---
DATE: 11/17/2019 SUBJECTIVE: Patient has no major complaints except just kind of the constant complaints. It is not clear he knows exactly where he is. His confusion kind of waxes and wanes, but he does answer questions appropriately. I indicated to him that really for his best interest he does not need to refuse any care, especially physical therapy. We need their assessment to determine rehab placement. OBJECTIVE: Blood pressure 129/61, heart rate 53, respiratory rate of 18, temperature was 98.1 degrees.Cardiovascular: Regular rate and rhythm. Pulmonary: Bilateral breath sounds clear to auscultation. GI: Soft, nontender, nondistended. Bowel sounds are positive. PROBLEM LIST: 1. Encephalopathy. At this point, not clear what the etiology is, but I get a sense that he is not too far off baseline. He has some complicated psychiatric issues, bipolar, possibly schizoaffective but he is doing okay and we will continue supportive care. I do not think he meets criteria for any inpatient psychiatric evaluation but he is also fairly weak. 2. Type 2 diabetes. He is on his regular medications. He is not very compliant with the diet. I have put in for dietary consultation. 3. Disposition. We are looking at likely jail. 4. Staph epidermidis urinary tract infection. We will continue to follow. Continue anti staph medications and monitor. cc: Godwin Saenz MD
--- NOTE | 2019-11-17 20:18 | INFECTIOUS DISEASE PROGRESS NO ---
DATE: 11/17/2019 PRESENT ILLNESS: The patient has influenza and Staphylococcus epidermidis urinary tract infection. I think 1 or both of the infections could be contributing to the patient's altered mental status. MEDICATIONS: This is day 4 of Tamiflu and day 1 of Septra. Yesterday, I discontinued cefepime and vancomycin. PHYSICAL EXAMINATION: Vital Signs: Temperature is 99 degrees, pulse 53, respirations 18, blood pressure is 129/61. General: This is a chronically ill-appearing, obese, middle-aged male. Currently, he is sleeping. Head/eyes/ears/nose/throat: No drainage noted from the nose or ears. Neck: He did not have any neck stiffness when I passively moved his neck. Lungs: Clear to auscultation. Cardiovascular: Heart rate is regular. Abdomen: Soft, did not appear to be tender. Neurologic: The patient was sleeping. He does not have a tremor. Integument: No rash. LAB AND X-RAY: The patient's cerebral spinal fluid showed 1 white blood cell, glucose of 159 and a protein of 32.9. CSF culture is negative. Cryptococcal antigen is negative, and the encephalitis/meningitis panel is completely negative also. ASSESSMENT AND PLAN: Patient has influenza and Staphylococcus epidermidis urinary tract infection. The patient will need 1 more day of Tamiflu for his influenza and the patient will need 12 more days of Septra to complete a 14-day treatment course for the patient's influenza and Staphylococcus epidermidis urinary tract infection. COMORBIDITIES: Diabetes mellitus, gastroesophageal reflux disease, hypothyroidism, bipolar disorder, and the patient was a heavy cigarette smoker--he stopped in 2004. Patient also has irritable bowel syndrome. cc: Zackery Carter MD
--- NOTE | 2019-11-17 20:40 | NEUROLOGY PROGRESS NOTE ---
DATE: 11/17/2019 SUBJECTIVE: Mr. Bro has generally been slowly improving mentally. When awake and alert, he has been demanding, verbally aggressive, restless. He has been noted to move all limbs. OBJECTIVE: CSF showed 1 white cell, no red cells, protein 32.9, glucose 159, meningitis/encephalitis panel all negative, cryptococcal antigen negative, Gram stain negative for bacteria, cultures negative. ASSESSMENT AND PLAN: There is no evidence of CATTLE SPRAYER infection. He has history of falls and there is some concern for his tight cervical stenosis putting him at risk for cervical cord injury with falling. We need to be aggressive with his physical therapy, encourage weight loss and aggressive management of blood sugar to try to slow progression of diabetic neuropathy and, in general, do everything we can to improve gait stability. I do not have any urgent suggestion from Neurology standpoint. Thanks for asking us to see Mr. Bro. cc: Yohana Sosa III, MD MTDD
[2019-11-17] MEDS: MYSOLINE PO SCH (23:13)
[2019-11-18] MEDS: HALDOL IM PRN (02:41)
[2019-11-18] MEDS: HUMULIN R SUBQ SCH ×5 (03:16→21:23)
[2019-11-18] MEDS: ATIVAN IV PRN ×2 (04:37→18:30)
[2019-11-18 07:44] LABS: BASO# 0.08 X1000 (0.0-0.2); BASO% 1.1 % (0.0-0.8); EOS# 0.15 X1000 (0.0-0.7); EOS% 2.1 % (0.0-10.0); HEMATOCRIT 34.9 % (42.0-52.0); HEMOGLOBIN 11.4 g/dL (14.0-18.0); IMM GRAN% 2.9 % (0.0-0.5); LYMPH# 2.94 X1000 (1.2-3.4); LYMPH% 42.1 % (20.5-51.1); MCH 30.5 PG (27-31); MCHC 32.7 g/dL (33-37); MCV 93.3 FL (81-99); MONO# 0.94 X1000 (0.11-0.59); MONO% 13.5 % (1.7-9.3); MPV 8.5 FL (7.4-10.4); NEUT# 2.67 X1000 (1.4-6.5); NEUT% 38.3 % (42.2-75.2); PLT 304 X1000 (130-400); RBC 3.74 XMIL (4.7-6.1); WBC 6.98 X1000 (4.8-10.8)
[2019-11-18] MEDS: LANTUS INSULIN SUBQ SCH (08:00)
[2019-11-18] MEDS: NEURONTIN PO SCH (08:01)
[2019-11-18] MEDS: DEPAKOTE ER PO SCH ×2 (08:01→21:22)
[2019-11-18] MEDS: NORCO-7.5 PO PRN ×3 (08:01→18:30)
[2019-11-18] MEDS: LIPITOR PO SCH (08:01)
[2019-11-18] MEDS: SYNTHROID PO SCH (08:02)
[2019-11-18] MEDS: TAMIFLU PO SCH (08:02)
[2019-11-18] MEDS: SEPTRA DS PO SCH ×2 (08:02→21:23)
[2019-11-18] MEDS: ASPIRIN PO SCH (08:02)
[2019-11-18] MEDS: THERA M PLUS PO SCH (08:02)
[2019-11-18 08:39] LABS: AGAP 12; BUN 4 mg/dL (8-22); CALCIUM 8.1 mg/dL (8.8-10.2); CHLORIDE 104 mmol/L (98-107); COSMO 285; CREATININE 0.5 mg/dL (0.7-1.2); ESTIMATED GFR > 60; GLUCOSE 216 mg/dL (70-104); POTASSIUM 3.6 mmol/L (3.5-5.1); SODIUM 141 mmol/L (136-145); TCO2 25 mmol/L (25-35)
--- NOTE | 2019-11-18 15:47 | INFECTIOUS DISEASE PROGRESS NO ---
DATE: 11/18/2019 PRESENT ILLNESS: The patient has influenza and Staph epidermidis urinary tract infection. The patient also has an altered mental status. MEDICATIONS: This is day 5 of treatment with Tamiflu and day 2 of treatment with Septra. PHYSICAL EXAMINATION: Vital Signs: Temperature is 98.3 degrees, pulse 70, respirations 22, blood pressure 126/51. General: This is a chronically ill-appearing, middle-aged male. He is in no acute distress. Head, eyes, ears, nose and throat: He can hear my spoken words and see near objects. He does not have any white coating of his tongue. Neck: No meningismus. Lungs: Clear to auscultation. Cardiovascular: Heart rate is regular. Abdomen: Soft and not tender. Neurologic: The patient was sleeping but I got him awake. He did follow some requests to move his extremities. He did not answer any of my questions however. Integument: No rash. LAB AND X-RAY: CBC shows a white count of 6980, hemoglobin 11.4, and platelet count 304,000. Creatinine is 0.5. GFR is greater than 60. ASSESSMENT AND PLAN: The patient finishes his treatment for influenza tonight. I am going to continue Septra for the patient's Staph epidermidis urinary tract infection. He will need 11 more days of Septra to complete his 14 day treatment course for the urinary tract infection. COMORBIDITIES: Diabetes mellitus, gastroesophageal reflux disease, hypothyroidism, bipolar disorder, history of heavy cigarette smoking and irritable bowel syndrome. cc: Zackery Carter MD
--- NOTE | 2019-11-18 16:34 | NEUROLOGY PROGRESS NOTE ---
DATE: 11/18/2019 SUBJECTIVE: Mr. Bro has not had any major neurologic change. CSF reports continue negative. He continues to be restless and agitated when awake. He has been noted to move all limbs vigorously. PLAN: I do not know his baseline cognitive state. I wonder if he might have a cognitive impairment syndrome which would predispose him to encephalopathy with any toxic or metabolic disturbance. If he does not recover to baseline mentally, we might consider further evaluation. I have seen him as an outpatient for other problems and will be glad to see him again. I do not have any urgent suggestion for inpatient management now. Thanks for asking us to see Mr. Bro. cc: Yohana Sosa III, MD [facility]ENTER[facility]
--- NOTE | 2019-11-18 16:49 | PROGRESS NOTE ---
DATE: 11/18/2019 SUBJECTIVE: Patient has no general complaints, although he kind of screams out help, but then does not have a focal complaints. I think he wants to go home. OBJECTIVE: Blood pressure 137/75, heart rate of 77, respiratory rate of 20, temperature 98.1 degrees, 100% on room air.Cardiovascular: Regular rate and rhythm. Pulmonary: Bilateral breath sounds clear to auscultation. GI: Soft, nontender, nondistended. Bowel sounds are positive. LABORATORY DATA: White count 6, hemoglobin and hematocrit 11 and 34, platelets 304,000. Basic was normal, sugar is still a little on the high side to 10. PROBLEM LIST: 1. Influenza. He is completing Tamiflu, I think today will be the last day. 2. Staphylococcus epidermidis urinary tract infection. He is on Bactrim per Dr. Carter. The treatment course is day 3 or 4 of . 3. Schizoaffective or bipolar disorder. He is still somewhat agitated despite medically being stable. I am going to get Psychiatry to evaluate him for inpatient geriatric psych and we will follow. 4. Type 2 diabetes. We will adjust his insulin. He is supposed to be getting 20 units daily. I will bump that up to 22 and see how he does, maybe even 24. 5. Disposition. We are looking at inpatient psych versus possible rehab and follow closely. cc: Godwin Saenz MD
[2019-11-18] MEDS: MYSOLINE PO SCH (21:23)
[2019-11-19] MEDS: HALDOL IM PRN ×3 (02:12→23:20)
[2019-11-19] MEDS: HUMULIN R SUBQ SCH ×4 (07:31→21:38)
[2019-11-19] MEDS: ATIVAN IV PRN ×2 (08:02→18:46)
[2019-11-19] MEDS: LANTUS INSULIN SUBQ SCH (08:02)
[2019-11-19] MEDS: NEURONTIN PO SCH (08:03)
[2019-11-19] MEDS: NORCO-7.5 PO PRN ×4 (08:03→23:19)
[2019-11-19] MEDS: SEPTRA DS PO SCH ×2 (08:03→23:20)
[2019-11-19] MEDS: SYNTHROID PO SCH (08:03)
[2019-11-19] MEDS: DEPAKOTE ER PO SCH ×2 (08:03→23:20)
[2019-11-19] MEDS: LIPITOR PO SCH (08:04)
[2019-11-19] MEDS: THERA M PLUS PO SCH (08:04)
[2019-11-19] MEDS: ASPIRIN PO SCH (08:04)
--- NOTE | 2019-11-19 18:10 | PROGRESS NOTE ---
DATE: 11/19/2019 SUBJECTIVE: He has no major complaints. Mental status seems stable for the last several days. OBJECTIVE: Blood pressure 128/65, heart rate 63, respiratory rate 20, temperature 97.4 degrees.Cardiovascular: Regular rate and rhythm. Pulmonary: Bilateral breath sounds. Diminished at bases. Gastrointestinal: Soft, nontender, nondistended. Bowel sounds are positive. LABORATORY DATA: No new labs today. CSF data is negative. PROBLEM LIST: 1. Influenza A. I think he has completed 5 days of Tamiflu. He is afebrile, stable. 2. Staphylococcus epidermidis. He is on Bactrim, which I think is day 5 of 14 days. 3. Bipolar disorder. Will continue medications. We have gotten a [facility] consult, but they did not feel he was appropriate, and his family did not necessarily want him to go there at this time. 4. Type 2 diabetes. Blood sugars are better under control, less than 200 with increase in his insulin. DISPOSITION: We are waiting rehab finalization, hopefully that will occur on Thursday. cc: Godwin Saenz MD
[2019-11-19] MEDS: MYSOLINE PO SCH (23:19)
[2019-11-20] MEDS: ATIVAN IV PRN (04:43)
[2019-11-20] MEDS: NORCO-7.5 PO PRN ×4 (06:02→22:06)
[2019-11-20] MEDS: HUMULIN R SUBQ SCH ×4 (07:04→22:04)
[2019-11-20] MEDS: NEURONTIN PO SCH ×2 (09:28→22:07)
[2019-11-20] MEDS: HALDOL IM PRN (09:28)
[2019-11-20] MEDS: LIPITOR PO SCH (09:29)
[2019-11-20] MEDS: SEPTRA DS PO SCH ×2 (09:29→22:07)
[2019-11-20] MEDS: THERA M PLUS PO SCH (09:29)
[2019-11-20] MEDS: LANTUS INSULIN SUBQ SCH (09:29)
[2019-11-20] MEDS: SYNTHROID PO SCH (09:29)
[2019-11-20] MEDS: DEPAKOTE ER PO SCH ×2 (09:29→22:06)
[2019-11-20] MEDS: ASPIRIN PO SCH (09:30)
[2019-11-20] MEDS: COGENTIN PO SCH ×2 (14:32→22:06)
--- NOTE | 2019-11-20 15:12 | INFECTIOUS DISEASE PROGRESS NO ---
DATE: 11/20/2019 PRESENT ILLNESS: The patient has completed treatment for influenza and is on treatment now for his Staph epidermidis urinary tract infection. MEDICATIONS: This is day 4 of treatment with Septra for the patient's urinary tract infection. PHYSICAL EXAMINATION: Vital Signs: Temperature is 97.7 degrees, pulse 69, respirations 20, blood pressure 129/71. General: This is a chronically ill-appearing, middle-aged male. He is lying in bed. He is sleepy. He is in no acute distress. Head/eyes/ears/nose/throat: He was able to hear my spoken words, and it looked like he could see near objects. He does not have any white patches in his mouth. Neck: No apparent pain with movement. Lungs: Clear to auscultation. Cardiovascular: Regular heart rate. Abdomen: Soft, nontender. Neurologic: As mentioned above the patient was lethargic. He was arousable, though, and he could move his extremities. LAB AND X-RAY: There is no lab or x-ray for today. ASSESSMENT AND PLAN: My plan is to continue Septra. The patient has had now 4 days of treatment and will require 10 more days of Septra to complete his 2 week treatment for his urinary tract infection. Also for tomorrow I have ordered a CBC and a BMP. COMORBIDITIES: Diabetes mellitus, gastroesophageal reflux disease, hypothyroidism, bipolar disorder, history of heavy cigarette smoking, and irritable bowel syndrome. cc: Zackery Carter MD
--- NOTE | 2019-11-20 17:42 | PROGRESS NOTE ---
DATE: 11/20/2019 SUBJECTIVE: Patient has no major complaints. OBJECTIVE: Blood pressure 137/86, heart rate 76, respiratory rate of 20, temperature 98.3 degrees, 94% on room air.Cardiovascular: Regular rate and rhythm. Pulmonary: Bilateral breath sounds. Clear to auscultation. GI: Soft, nontender, nondistended. Bowel sounds are positive. LABORATORY DATA: I do not have any new data today. PROBLEM LIST: 1. Influenza A. Has completed 5 days of Tamiflu. 2. Staphylococcus epidermidis urinary tract infection. He is on Bactrim, day 6 of 14 days. 3. Bipolar disorder. I was under the impression his medicines had been continued, but he has not been on any of his medications for several days. I guess maybe they had been stopped because of concern over possible causing altered mentation, but I think at this point there was psychiatric issues and he has had not been on his medications. He is on a very high dose of Depakote. He is on a low dose of Cymbalta. He is on Minipress, primidone. That had been continued, but in any case, we are going to continue these medications and follow. His Depakote level on the 12th was low, so in any case, we will see how he does from mental status standpoint from that standpoint. 4. Type 2 diabetes. Blood sugars are a little better. Still some in the 200s. He is on glargine insulin. I think I will bump it up again to 26, and we will see how he does. DISPOSITION: We are awaiting rehab, which hopefully we will work out this week. cc: Godwin Saenz MD
[2019-11-20] MEDS: MELATONIN PO SCH (22:06)
[2019-11-20] MEDS: MYSOLINE PO SCH (22:06)
[2019-11-20] MEDS: MINIPRESS PO SCH (22:55)
[2019-11-21] MEDS: NORCO-7.5 PO PRN ×3 (03:01→21:30)
[2019-11-21] MEDS: HALDOL IM PRN ×2 (03:02→18:44)
[2019-11-21] MEDS: HUMULIN R SUBQ SCH ×4 (07:49→22:00)
[2019-11-21 08:01] LABS: BASO# 0.05 X1000 (0.0-0.2); BASO% 0.6 % (0.0-0.8); EOS# 0.17 X1000 (0.0-0.7); EOS% 2.1 % (0.0-10.0); HEMATOCRIT 38.7 % (42.0-52.0); HEMOGLOBIN 12.5 g/dL (14.0-18.0); IMM GRAN% 6.2 % (0.0-0.5); LYMPH# 2.26 X1000 (1.2-3.4); LYMPH% 27.9 % (20.5-51.1); MCH 30.5 PG (27-31); MCHC 32.3 g/dL (33-37); MCV 94.4 FL (81-99); MONO# 1.48 X1000 (0.11-0.59); MONO% 18.3 % (1.7-9.3); MPV 8.3 FL (7.4-10.4); NEUT# 3.63 X1000 (1.4-6.5); NEUT% 44.9 % (42.2-75.2); PLT 414 X1000 (130-400); RDW 13.2 % (11.5-14.5); WBC 8.09 X1000 (4.8-10.8)
[2019-11-21 08:20] LABS: AGAP 14; BUN 11 mg/dL (8-22); CALCIUM 8.4 mg/dL (8.8-10.2); CHLORIDE 103 mmol/L (98-107); COSMO 289; CREATININE 0.8 mg/dL (0.7-1.2); ESTIMATED GFR > 60; GLUCOSE 312 mg/dL (70-104); POTASSIUM 4.4 mmol/L (3.5-5.1); SODIUM 139 mmol/L (136-145); TCO2 22 mmol/L (25-35)
[2019-11-21 08:52] LABS: LYMPHS 20 % (21-51); MONO 14 % (1-9); SEGS 60 % (42-75)
[2019-11-21] MEDS: NEURONTIN PO SCH ×2 (08:52→21:31)
[2019-11-21] MEDS: SYNTHROID PO SCH (08:52)
[2019-11-21] MEDS: ASPIRIN PO SCH (08:52)
[2019-11-21] MEDS: SEPTRA DS PO SCH ×2 (08:52→21:31)
[2019-11-21] MEDS: LIPITOR PO SCH (08:52)
[2019-11-21] MEDS: CYMBALTA PO SCH (08:52)
[2019-11-21] MEDS: LANTUS INSULIN SUBQ SCH (08:52)
[2019-11-21] MEDS: COGENTIN PO SCH ×2 (08:52→21:32)
[2019-11-21] MEDS: THERA M PLUS PO SCH (08:52)
[2019-11-21] MEDS: DEPAKOTE ER PO SCH ×2 (08:53→21:32)
--- NOTE | 2019-11-21 12:15 | Diag Imaging Result Doc PS360 ---
EXAM: CT HEAD W/O CONTRAST INDICATION: encephalopathy TECHNIQUE: This exam was performed using automated exposure control, adjustment of mA or kV according to patient size, and/or use of iterative reconstruction technique. COMPARISON: 11/11/2019 FINDINGS: There is no definite acute infarct given the limited sensitivity of CT versus MRI. There is no discrete intracranial mass, mass effect, or intracranial hemorrhage. The surrounding soft tissues and bony structures are essentially unremarkable. IMPRESSION: No evidence of acute intracranial pathology. Electronically signed by Albert Miller 11/21/2019 12:12 PM
--- NOTE | 2019-11-21 15:00 | INFECTIOUS DISEASE PROGRESS NO ---
DATE: 11/21/2019 PRESENT ILLNESS: Mr. Bro is being treated for a Staph epidermidis urinary tract infection. He continues with an altered mental status. MEDICATIONS: Today is day 5 of treatment with Septra DS 1 by mouth every 12 hours. PHYSICAL EXAMINATION: Vital Signs: Temperature is 98.6 degrees, pulse rate 78, respiratory rate 20, blood pressure 121/67, O2 saturation 98% on room air. General: This is a chronically ill- appearing, middle-aged gentleman. He is lying in the bed, currently in no acute distress. HEENT: Atraumatic, normocephalic. Conjunctivae are pink. Oral mucous membranes are moist. He is eating chocolate at this time. Neck: Supple. Trachea is midline. Respiratory: Lung sounds are bilaterally clear to auscultation. No work of breathing is noted. Cardiovascular: Heart rate is regular. S1, S2 noted. Neurologic: He is awake, alert, and following commands appropriately. He is unable to answer questions regarding place, time, or situation. LABORATORY AND X-RAY: Today his white count is 8.09, hemoglobin 12.5, platelet count 414,000. Creatinine is 0.8. Estimated GFR is greater than 60. The head CT today showed no evidence of acute intracranial pathology. ASSESSMENT AND PLAN: Mr. Bro is being treated for urinary tract infection and is receiving Septra which we will continue at this time. The plan is to continue him on the Septra for 2 weeks, making sure that his creatinine is stable. He continues to have altered mental status. These plans have been discussed with and recommended by Dr. Carter. COMORBIDITIES: For the patient include diabetes mellitus, gastroesophageal reflux disease, bipolar disorder, irritable bowel syndrome, and cigarette smoking. Dictated by SAMIRA Vieira for Zackery Carter MD cc: Zackery Carter MD
--- NOTE | 2019-11-21 18:42 | PROGRESS NOTE ---
DATE: 11/21/2019 SUBJECTIVE: Patient has no major complaints. OBJECTIVE: Blood pressure 122/67, heart rates 81, respiratory 20, temperature 98.1 degrees, 96% on room air.Cardiovascular: Regular rate and rhythm. Pulmonary: Bilateral breath sounds clear to auscultation. GI: Was soft, nontender, nondistended. Bowel sounds are positive. LABS: White count 8, hemoglobin and hematocrit 12 and 38, platelets 414,000. Basic was normal. PROBLEM LIST: 1. Influenza A, completed Tamiflu. 2. Staph epidermidis urinary tract infection. He is on Bactrim now per their count I do not know how many days my count they feel that today is day 5 which I think by my count I thought is was longer than that but okay. 3. Bipolar disorder. He seems to be better. He is asking to go home but he is not able to ambulate yet. DISPOSITION: We are looking at rehab. He did fall today and they are looking for rehab beds for this patient. cc: Godwin Saenz MD
[2019-11-21] MEDS: MYSOLINE PO SCH (21:31)
[2019-11-21] MEDS: MELATONIN PO SCH (21:31)
[2019-11-21] MEDS: TYLENOL PO PRN (21:32)
[2019-11-21] MEDS: MINIPRESS PO SCH (21:32)
[2019-11-22] MEDS: HUMULIN R SUBQ SCH ×4 (07:04→22:41)
[2019-11-22] MEDS: THERA M PLUS PO SCH (09:03)
[2019-11-22] MEDS: SYNTHROID PO SCH (09:03)
[2019-11-22] MEDS: SEPTRA DS PO SCH ×2 (09:03→22:39)
[2019-11-22] MEDS: ASPIRIN PO SCH (09:03)
[2019-11-22] MEDS: LIPITOR PO SCH (09:03)
[2019-11-22] MEDS: NEURONTIN PO SCH ×2 (09:03→22:38)
[2019-11-22] MEDS: CYMBALTA PO SCH (09:03)
[2019-11-22] MEDS: COGENTIN PO SCH ×2 (09:04→22:40)
[2019-11-22] MEDS: DEPAKOTE ER PO SCH ×2 (09:04→22:39)
[2019-11-22] MEDS: LANTUS INSULIN SUBQ SCH (09:04)
--- NOTE | 2019-11-22 13:44 | INFECTIOUS DISEASE PROGRESS NO ---
DATE: 11/22/2019 PRESENT ILLNESS: The patient is being treated for a Staphylococcus epidermidis urinary tract. MEDICATIONS: This the 6th day of treatment with Septra DS 1 every 12 hours. PHYSICAL EXAMINATION: Vital Signs: Temperature is 97.3 degrees, pulse is 63, respirations 16, blood pressure 108/65. General: This is a chronically ill-appearing, middle-aged male. He is lying in bed but moving around and he is talking. Head/eyes/ears/nose/throat: He does not have any drainage from his nose or ears. He can hear my spoken words and see near objects. Neck: No pain with movement. Lungs: Clear to auscultation. Cardiovascular: Heart rate is regular. Neurologic: The patient is alert today. He talks in a more coherent fashion. He asked if he could be discharged. LAB AND X-RAY: There is no new radiographic study. CBC shows a white count of 8090, hemoglobin 12.5, and platelet count 414,000. Creatinine is 0.8, GFR is greater than 60. A CT scan of the head yesterday was done and it showed no evidence of acute intracranial pathology. ASSESSMENT AND PLAN: The patient is being treated for his urinary tract infection and for his urinary tract infection. Neurologically, he is more alert and he is more coherent. COMORBIDITIES: The patient the patient has diabetes mellitus, gastroesophageal reflux disease, hypothyroidism, bipolar disorder, history of heavy cigarette smoking, and irritable bowel syndrome. cc: Zackery Carter MD
[2019-11-22] MEDS: NORCO-7.5 PO PRN (14:45)
--- NOTE | 2019-11-22 18:47 | PROGRESS NOTE ---
DATE: 11/22/2019 SUBJECTIVE: He seems more to himself today. No major complaints. OBJECTIVE: Vital Signs: Blood pressure 143/69, heart rate 64, respiratory rate 20, temperature 98.1 degrees. 96% on room air. Cardiovascular: Regular rate and rhythm. Pulmonary: Bilateral breath sounds clear to auscultation. Gastrointestinal: Soft, nontender, nondistended. Bowel sounds are positive. LABORATORY DATA: I do not have any new data today. Sugars are still elevated in the 250s. PROBLEM LIST: 1. Influenza status post 5 days of Tamiflu. 2. Staphylococcus epidermidis. He is on Bactrim which is day 6 of 10 to 14. 3. Bipolar. He seems like he is doing better. 4. Disposition. He is progressing with PT fairly well. 5. Diabetes. I am just going to bump him up to 30 because I think he is stable enough for that. We will either decide about rehab or home PT. cc: Godwin Saenz MD
[2019-11-22] MEDS: MELATONIN PO SCH (22:38)
[2019-11-22] MEDS: MINIPRESS PO SCH (22:40)
[2019-11-22] MEDS: MYSOLINE PO SCH (22:41)
[2019-11-22] MEDS: GEODON IM PRN (23:41)
[2019-11-23] MEDS: GEODON IM PRN (06:47)
[2019-11-23] MEDS: HUMULIN R SUBQ SCH ×4 (06:48→21:57)
[2019-11-23] MEDS: STERILE WATER INJ. INJ PRN (06:48)
[2019-11-23] MEDS: NEURONTIN PO SCH ×2 (11:32→21:56)
[2019-11-23] MEDS: DEPAKOTE ER PO SCH ×2 (11:33→21:56)
[2019-11-23] MEDS: CYMBALTA PO SCH (11:33)
[2019-11-23] MEDS: SEPTRA DS PO SCH ×2 (11:33→21:56)
[2019-11-23] MEDS: COGENTIN PO SCH ×2 (11:33→21:57)
[2019-11-23] MEDS: LIPITOR PO SCH (11:34)
[2019-11-23] MEDS: SYNTHROID PO SCH (11:34)
[2019-11-23] MEDS: LANTUS INSULIN SUBQ SCH (11:34)
[2019-11-23] MEDS: THERA M PLUS PO SCH (11:35)
[2019-11-23] MEDS: ASPIRIN PO SCH (11:35)
--- NOTE | 2019-11-23 14:25 | INFECTIOUS DISEASE PROGRESS NO ---
DATE: 11/23/2019 PRESENT ILLNESS: The patient is being treated for a Staph epidermidis urinary tract infection. MEDICATIONS: This is the 7th day of treatment with Septra DS 1 p.o. every 12 hours. PHYSICAL EXAMINATION: Vital Signs: Temperature is 98.6 degrees, pulse 87, respirations 20, blood pressure 107/66. General: This is a chronically ill-appearing, middle-aged male. He is in no acute distress. He does look though a lot much better than he did a week or 2 ago. Head/eyes/ears/nose/throat: He can hear my spoken words and see near objects. He does not have any white patches in his mouth. Neck: No pain with movement. Lungs: Clear to auscultation. Cardiovascular: Regular heart rate. Abdomen: Soft and nontender. Neurologic: The patient is alert. He talks in a coherent way. He can move his extremities. LAB AND X-RAY: There is no lab for today and there is also no radiographic study for today. ASSESSMENT AND PLAN: The patient is being treated for a urinary tract infection with Septra DS as mentioned above. He will need 7 more days to complete a 14-day treatment course. For tomorrow, I have ordered a CBC and a BMP. COMORBIDITIES: Diabetes mellitus, gastroesophageal reflux disease, hypothyroidism, bipolar disorder, history of heavy cigarette smoking, and finally irritable bowel syndrome. cc: Zackery Carter MD
--- NOTE | 2019-11-23 18:16 | PROGRESS NOTE ---
DATE: 11/23/2019 SUBJECTIVE: Patient has no major complaints. He is much better, I think since he has got back on his regular medications. OBJECTIVE: Blood pressure 116/74, heart rate of 62, respiratory rate of 20, temperature 97.8 degrees, 92% on room air.Cardiovascular: Regular rate and rhythm. Pulmonary: Bilateral breath sounds. Clear to auscultation. Gastrointestinal: Soft, nontender, nondistended. Bowel sounds were positive. LABORATORY DATA: Blood sugars are still elevated, not quite where they need to be. PROBLEM LIST: 1. Influenza A. Status post 5 days of Tamiflu. We will get a chest x-ray because he has reported persistent cough. This may just be atelectasis, so we will work on that. 2. Staphylococcus epidermidis. He is on Bactrim, which I think is day 11 of 14. 3. Bipolar disorder. He is on Depakote, Cymbalta, primidone, Cogentin, intermittent Haldol. He seems to be doing better. 4. Disposition. We are still looking at rehab. He is still fairly weak with frequent falls. The was in the room today, I had a discussion with her. She still would like for us to look at rehab because of deconditioning, and I think that is reasonable. We will continue to follow closely, and I think he is ready for rehab when bed is available. At this point, I think we are waiting on insurance approval. cc: Godwin Saenz MD
--- NOTE | 2019-11-23 18:18 | Diag Imaging Result Doc PS360 ---
EXAM: CHEST-PORTABLE HISTORY: cough TECHNIQUE: Two views COMPARISON: 11/11/2019 FINDINGS: The lungs are well expanded. The heart is not enlarged. The vessels are not distended. There are no infiltrates. No effusion identified. IMPRESSION: Negative exam. Electronically signed by Benigno Trujillo 11/23/2019 6:15 PM
[2019-11-23] MEDS: MYSOLINE PO SCH (21:56)
[2019-11-23] MEDS: NORCO-7.5 PO PRN (21:56)
[2019-11-23] MEDS: MELATONIN PO SCH (21:56)
[2019-11-23] MEDS: MINIPRESS PO SCH (21:57)
[2019-11-23] MEDS: ROBITUSSIN-DM PO PRN (22:15)
[2019-11-24] MEDS: GEODON IM PRN (01:01)
[2019-11-24] MEDS: STERILE WATER INJ. INJ PRN (01:02)
[2019-11-24] MEDS: NORCO-7.5 PO PRN (04:39)
[2019-11-24] MEDS ORDERED: LOVENOX SUBQ SCH (06:00)
[2019-11-24] MEDS: HUMULIN R SUBQ SCH ×3 (07:04→17:12)
[2019-11-24 07:10] LABS: BASO# 0.02 X1000 (0.0-0.2); BASO% 0.2 % (0.0-0.8); EOS# 0.19 X1000 (0.0-0.7); EOS% 1.8 % (0.0-10.0); HEMATOCRIT 40.6 % (42.0-52.0); HEMOGLOBIN 13.4 g/dL (14.0-18.0); IMM GRAN# 0.19 X1000 (0.0-0.04); IMM GRAN% 1.8 % (0.0-0.5); LYMPH# 3.55 X1000 (1.2-3.4); LYMPH% 33.7 % (20.5-51.1); MCH 31.2 PG (27-31); MCV 94.6 FL (81-99); MONO# 1.15 X1000 (0.11-0.59); MONO% 10.9 % (1.7-9.3); MPV 8.2 FL (7.4-10.4); NEUT# 5.44 X1000 (1.4-6.5); NEUT% 51.6 % (42.2-75.2); PLT 496 X1000 (130-400); RBC 4.29 XMIL (4.7-6.1); RDW 13.3 % (11.5-14.5); WBC 10.54 X1000 (4.8-10.8)
[2019-11-24 07:47] LABS: AGAP 12; BUN 13 mg/dL (8-22); CALCIUM 9.3 mg/dL (8.8-10.2); CHLORIDE 102 mmol/L (98-107); COSMO 286; CREATININE 0.8 mg/dL (0.7-1.2); ESTIMATED GFR > 60; GLUCOSE 175 mg/dL (70-104); POTASSIUM 4.7 mmol/L (3.5-5.1); SODIUM 141 mmol/L (136-145); TCO2 27 mmol/L (25-35)
[2019-11-24] MEDS: SEPTRA DS PO SCH (08:16)
[2019-11-24] MEDS: NEURONTIN PO SCH (08:16)
[2019-11-24] MEDS: COGENTIN PO SCH (08:16)
[2019-11-24] MEDS: DEPAKOTE ER PO SCH (08:16)
[2019-11-24] MEDS: LIPITOR PO SCH (08:16)
[2019-11-24] MEDS: CYMBALTA PO SCH (08:16)
[2019-11-24] MEDS: SYNTHROID PO SCH (08:16)
[2019-11-24] MEDS: THERA M PLUS PO SCH (08:16)
[2019-11-24] MEDS: ASPIRIN PO SCH (08:16)
[2019-11-24] MEDS: LANTUS INSULIN SUBQ SCH (08:17)
[2019-11-24] MEDS: ROBITUSSIN-DM PO PRN (10:49)
--- NOTE | 2019-11-24 11:33 | INFECTIOUS DISEASE PROGRESS NO ---
DATE: 11/24/2019 PRESENT ILLNESS: The patient has a Staph epidermidis urinary tract infection. MEDICATIONS: This is the 8th day of treatment with Septra DS 1 p.o. every 12 hours. PHYSICAL EXAMINATION: Vital Signs: Temperature is 98.3 degrees, pulse 81, respirations 18, blood pressure 105/61. General: This is a chronically ill-appearing, middle-aged male. He is in no acute distress. HEENT: He can hear my spoken words and see near objects. He does not have any white coating of his tongue. He does not have any ulcers in his mouth either. Neck: No pain with movement. Lungs: Clear to auscultation. Cardiovascular: Regular heart rate. Abdomen: Soft and nontender. Neurologic: The patient is alert. He talks in a coherent fashion. He can move his extremities. There is no tremor. LAB AND X-RAY: Chest x-ray shows clear lung hernandes. CBC shows a white count of 10,540, hemoglobin 13.4, and platelet count 496,000. Creatinine is 0.8, GFR is greater than 60. ASSESSMENT AND PLAN: Patient has Staph urinary tract infection. The plan is to treat with Septra DS for 6 more days to complete a 14-day treatment course. COMORBIDITIES: Diabetes mellitus, gastroesophageal reflux disease, hypothyroidism, bipolar disorder, history of cigarette smoking and irritable bowel syndrome. I am signing off of the patient's case. He will need 6 more days of treatment with Septra. I have put in the patient's chart that his last dose should be on 11/30/2019 and the last dose should be the morning dose. If he is transferred to another place or goes home, he will need to have a prescription for Septra for 6 more days. I am signing off the patient's case. cc: Zackery Carter MD
[2019-11-24] MEDS ORDERED: MIRALAX PO SCH (15:30)
--- NOTE | 2019-11-24 16:11 | DISCHARGE SUMMARY ---
ADMISSION DATE: 11/12/2019 DISCHARGE DATE: 11/24/2019 ADMISSION DIAGNOSES: 1. Encephalopathy. 2. Weakness with frequent falls. 3. Diabetes. 4. Hypothyroid. 5. Also, I think he had influenza A and he had a Staphylococcus epidermidis urinary tract infection. CONSULTATIONS: Neurology. Dr. Carter, Infectious Diseases. PROCEDURES: None. HOSPITAL COURSE: Briefly, this is a 64-year-old male. He has a lot of psychiatric issues, bipolar. He came in because of confusion. His urine drug screen was unremarkable. Negative alcohol. He did have evidence of a urinary tract infection. He has fallen several times. This is not a new issue, but it has definitely increased in frequency. He was disoriented. He was admitted and placed on treatment, Rocephin empirically. He eventually was placed on Tamiflu. His hip and pelvis x-rays did not show significant bony disease. Lumbar spine was normal. Sacrum was normal. He had restless legs. Neurology ended up being consulted. He had poor strength in his lower extremities but no fecal or urinary incontinence. His cervical spine showed some critical stenosis. This was reviewed by Dr. Cavanaugh in [place] and because there was some much motion artifact, it was not clear to him that this was an acute issue plus he had some hand neuropathy. Neurology was consulted but they did not have major recommendations. The MRI was negative. He had been taken off his psychiatric medicines I guess because there was concern over confusion and that ended up causing a lot issues with his mental status. According to Dr. Lynne she felt there was no evidence of myelopathy, central cord syndrome, spinal shock, felt that this could be uncontrolled diabetes. ID was consulted and I guess it ended up there was concern over possibly needing an LP because to rule out meningitis which he did end up getting and that was negative. He completed a course of Tamiflu. He was given a course of Bactrim for his staphylococcus epidermitis. Again all his cultures including Gram stain at least of his spinal fluid was negative and was not consistent with meningitis. I did get a psychiatric evaluation but they did not feel he was appropriate for inpatient psychiatric. I think the main limitation was that he was not ambulatory which he is now. He is completely ambulatory, but his mental status has improved. We did resume his Depakote and Cymbalta, which were all at high dose. Minipress, primidone. His mental status improved significantly as did his demeanor. He was not agitated. He did have several times where he did try to get out of bed and fell, so he is still weak despite ambulating okay with a rolling walker. Chest x-ray was clear. They were concerned about a cough, but all that looked okay. In any case, on the , he was felt stable for discharge. Lungs were clear. Cardiac was clear. He had been afebrile since the , so 5 days. Labs were unremarkable. No white count. Basic was normal. Sugars were still a bit on the high side. DISCHARGE MEDICATIONS: As follows: Benadryl 25 daily, Depakote 2000 mg at night, gabapentin 800 at bedtime, melatonin 20 at bedtime, primidone 50 at bedtime, aspirin 81 daily, Depakote ER 1500 in the morning, multivitamin daily, Humalog 6 units b.i.d. Synthroid 125 daily, Lipitor 10 daily, pravastatin 1 cap p.r.n., Neurontin 300 in the morning, Pepcid 20 at night, Tradjenta 5 daily, Ambien 10 at bedtime per the that is something he usually takes. Bactrim q.12 for another 6 days, Bentyl 10 p.o. before meals and at bedtime. Cogentin 1 b.i.d., Cymbalta 20 daily, metformin 1 g b.i.d., lactulose 30 daily p.r.n. bowel movement, Lantus 30 subcu b.i.d. DISCHARGE CONDITION: Stable. He is going to go to a rehab in [place]. TIME SPENT: This was a 35 minute discharge. cc: Godwin Saenz MD
[2019-11-24 16:58] VITALS: BP 128/72
[2019-11-24] MEDS ORDERED: DULCOLAX PR ONE (17:04)
== END 2019-11-24 19:01 | DRG 689 ==
LOC: SUPCPDRO → ED 18:34 → SUATTDRO 11-12 03:27 → EDIPHOLD 11-12 03:27 → 4N 11-12 13:07
PROVIDERS: ATTEND Internal Medicine